=== PATIENT | male | born 1965 | race Caucasian/White ===

== ENCOUNTER 2016-06-17 17:00 | Inpatient (IN) | payer OTHER ==
[2016-06-17 17:35] VITALS: BMI 26.3
[2016-06-17] MEDS ORDERED: ACETAMINOPHEN 325 MG TABLET (FP) PO PRN (20:06)
[2016-06-17] MEDS ORDERED: guaiFENesin/D-METHORPHAN HB 10 ML UNIT-DOSE CUPS PO PRN (20:06)
[2016-06-17] MEDS ORDERED: diphenhydrAMINE HCL 50 MG CAPSULE PO PRN (20:06)
[2016-06-17] MEDS ORDERED: IBUPROFEN 400 MG TABLET (FP) PO PRN (20:06)
[2016-06-17] MEDS ORDERED: LOPERAMIDE HCL 2 MG CAPSULE PO PRN (20:06)
[2016-06-17] MEDS ORDERED: chlordiazePOXIDE HCL 25 MG CAPSULE PO PRN (20:06)
[2016-06-17] MEDS ORDERED: MAGNESIUM CITRATE 300 ML BOTTLE PO PRN (20:06)
[2016-06-17] MEDS ORDERED: MENTHOL/PHENOL 1 EACH UD MM PRN (20:06)
[2016-06-17] MEDS ORDERED: MAG HYDROX/AL HYDROX/SIMETH 30 ML UNIT-DOSE CUP PO PRN (20:06)
[2016-06-17] MEDS ORDERED: MAGNESIUM HYDROX 2400MG/30ML ORAL SUSPENSION 30 ML CUP PO PRN (20:06)
[2016-06-17] MEDS ORDERED: P-EPHED 60MG/TRIPROLIDI 2.5MG TABLET PO PRN (20:06)
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
[2016-06-17] MEDS ORDERED: DOCUSATE SODIUM 100 MG CAPSULE (FP) PO PRN (20:10)
[2016-06-17] MEDS ORDERED: ONDANSETRON *ODT* 4 MG TABLET SL PRN (20:11)
[2016-06-17] MEDS ORDERED: ALBUTEROL SO4 6.7 GM HFA INHALER IH PRN (20:12)
[2016-06-17] MEDS ORDERED: ALBUTEROL SO4 2.5/IPRATROPIUM 0.5 INH SOL 3 ML VIAL.NEB. NEB PRN (20:12)
[2016-06-17] MEDS: RANITIDINE HCL 150 MG TABLET (FP) PO SCH (21:39)
[2016-06-17] MEDS: THIAMINE HCL 100 MG TABLET (FP) PO SCH (21:39)
[2016-06-17] MEDS: chlordiazePOXIDE HCL 25 MG CAPSULE PO SCH (23:05)
[2016-06-17 23:44] LABS: URINE APPEARANCE CLEAR; URINE BILIRUBIN NEGATIVE (NEGATIVE); URINE BLOOD NEGATIVE (NEGATIVE); URINE COLOR YELLOW; URINE GLUCOSE (UA) NEGATIVE (NEGATIVE); URINE KETONE NEGATIVE (NEGATIVE); URINE LEUK ESTERASE NEGATIVE (NEGATIVE); URINE NITRITE NEGATIVE (NEGATIVE); URINE PROTEIN NEGATIVE (NEGATIVE); URINE UROBILINOGEN NEGATIVE E.U./dl (0.2-1.0)
[2016-06-18] MEDS: chlordiazePOXIDE HCL 25 MG CAPSULE PO SCH ×4 (05:56→22:25)
[2016-06-18] MEDS ORDERED: amLODIPine BESYLATE 5 MG TABLET (FP) PO SCH (10:00)
[2016-06-18 10:08] LABS: MCH 33.7 pg (25.7-33.7); MEAN CELL VOLUME 99.1 fl (80-96); MEAN PLT VOLUME 8.2 fl (7.5-11.1); PLATELET COUNT 202 K/MM3 (134-434); RDW 13.7 % (11.9-15.9)
[2016-06-18] MEDS: RANITIDINE HCL 150 MG TABLET (FP) PO SCH ×2 (10:17→22:25)
[2016-06-18] MEDS: PRENATAL VITAMINS W/ FOLIC ACID TABLET (FP) PO SCH (10:17)
[2016-06-18] MEDS: FLUoxetine HCL 20 MG CAPSULE (FP) PO SCH (10:18)
[2016-06-18 10:48] LABS: ALBUMIN 3.5 g/dl (3.4-5.0); ALK PHOS 55 U/L (45-117); ANION GAP 10 (8-16); BILIRUBIN,TOTAL 0.4 mg/dL (0.2-1.0); CALCIUM 8.2 mg/dL (8.5-10.1); CO2 25 mmol/L (21-32); CREATININE 0.9 mg/dL (0.7-1.3); GLUCOSE,RANDOM 107 mg/dL (74-106); SGOT/AST 16 U/L (15-37); SGPT/ALT 25 U/L (12-78); TOT PROT 6.5 g/dl (6.4-8.2)
--- NOTE | 2016-06-18 11:28 | PN ---
[facility] CIWA - CIWA Score Nausea/Vomitin-No Nausea/No Vomiting Muscle Tremors: 4-Moderate,w/Arms Extend Anxiety: 4-Mod. Anxious/Guarded Agitation: 4-Moderately Restless Paroxysmal Sweats: 1-Minimal Palms Moist Orientation: 0-Oriented Tacttile Disturbances: 3-Moderate Itch/Numb/Burn Auditory Disturbances: 0-None Visual Disturbances: 0-None Headache: 0-None Present CIWA-Ar Total Score: 16 BHS Progress Note (SOAP) Subjective: ANXIETY,TREMORS,SWEATS/CHILLS. Objective: 06/18/16 11:28 Vital Signs Temperature 97.0 F L 06/18/16 10:25 Pulse Rate 56 L 06/18/16 10:25 Respiratory Rate 19 06/18/16 10:25 Blood Pressure 144/94 06/18/16 10:25 O2 Sat by Pulse Oximetry (%) Laboratory Last Values WBC 4.0 K/mm3 (4.0-10.0) 06/18/16 07:15 RBC 3.79 M/mm3 (4.00-5.60) L 06/18/16 07:15 Hgb 12.8 GM/dL (11.7-16.9) 06/18/16 07:15 Hct 37.6 % (35.4-49) 06/18/16 07:15 MCV 99.1 fl (80-96) H 06/18/16 07:15 MCHC 34.0 g/dl (32.0-35.9) 06/18/16 07:15 RDW 13.7 % (11.9-15.9) 06/18/16 07:15 Plt Count 202 K/MM3 (134-434) D 06/18/16 07:15 MPV 8.2 fl (7.5-11.1) 06/18/16 07:15 Sodium 139 mmol/L (136-145) 06/18/16 07:15 Potassium 4.0 mmol/L (3.5-5.1) 06/18/16 07:15 Chloride 104 mmol/L (98-107) 06/18/16 07:15 Carbon Dioxide 25 mmol/L (21-32) 06/18/16 07:15 Anion Gap 10 (8-16) 06/18/16 07:15 BUN 14 mg/dL (7-18) 06/18/16 07:15 Creatinine 0.9 mg/dL (0.7-1.3) 06/18/16 07:15 Creat Clearance w eGFR > 60 (>60) 06/18/16 07:15 Random Glucose 107 mg/dL (74-106) H 06/18/16 07:15 Calcium 8.2 mg/dL (8.5-10.1) L 06/18/16 07:15 Total Bilirubin 0.4 mg/dL (0.2-1.0) 06/18/16 07:15 AST 16 U/L (15-37) D 06/18/16 07:15 ALT 25 U/L (12-78) 06/18/16 07:15 Alkaline Phosphatase 55 U/L (45-117) 06/18/16 07:15 Total Protein 6.5 g/dl (6.4-8.2) 06/18/16 07:15 Albumin 3.5 g/dl (3.4-5.0) 06/18/16 07:15 Urine Color Yellow 06/17/16 22:28 Urine Appearance Clear 06/17/16 22:28 Urine pH 5.0 (5.0-8.0) 06/17/16 22:28 Ur Specific [place] 1.020 (1.001-1.035) 06/17/16 22:28 Urine Protein Negative (NEGATIVE) 06/17/16 22:28 Urine Glucose (UA) Negative (NEGATIVE) 06/17/16 22:28 Urine Ketones Negative (NEGATIVE) 06/17/16 22:28 Urine Blood Negative (NEGATIVE) 06/17/16 22:28 Urine Nitrite Negative (NEGATIVE) 06/17/16 22:28 Urine Bilirubin Negative (NEGATIVE) 06/17/16 22:28 Urine Urobilinogen Negative E.U./dl (0.2-1.0) 06/17/16 22:28 Ur Leukocyte Esterase Negative (NEGATIVE) 06/17/16 22:28 Assessment: 06/18/16 11:28 WITHDRAWAL SX Plan: CONTINUE DETOX
[2016-06-18] MEDS ORDERED: INFLUENZA VACCINE 45 MCG/0.5 ML (MDV 16-17) IM ONE (12:00)
--- NOTE | 2016-06-18 14:26 | EKG ---
Test Reason : Blood Pressure : / mmHG Vent. Rate : 052 BPM Atrial Rate : 052 BPM P-R Int : 164 ms QRS Dur : 082 ms QT Int : 484 ms P-R-T Axes : 067 047 050 degrees QTc Int : 450 ms SINUS BRADYCARDIA OTHERWISE NORMAL ECG NO PREVIOUS ECGS AVAILABLE Confirmed by ROJAS MOBLEY MD ([id number]) on 06/18/2016 2:26:42 PM Referred By: Confirmed By:ROJAS MOBLEY MD
--- NOTE | 2016-06-18 15:16 | CONSULT ---
[facility] Psychiatric Consult - Data Date of interview: 06/18/16 Admission source: [facility] Identifying data: This is 51 years old male with no psychiatric hospitalization history, intoxicated with : Alcohol, Cocaine and Nicotine Substance Abuse History: - Smoking Cessation. Smoking history: Current every day smoker. Have you smoked in the past 12 months: Yes. Aproximately how many cigarettes per day: 20. Cigars Per Day: 0. Hx Chewing Tobacco Use: No. Initiated information on smoking cessation: Yes. 'Breaking Loose' booklet given : 06/17/16. - Substance & Tx. History. Hx Alcohol Use: Yes. Hx Substance Use : No. Substance Use Type: Alcohol. Hx Substance Use Treatment: Yes. - Substances Abused. Alcohol. Route: Oral. Frequency: Daily. Amount used: vodka 2 pints, beer 2 of 6 packs. Age of first use: 21. Date of Last Use: Medical History: Asthma, HTN, GERD, PPD+ history, Anemia history, Right foot injury history Psychiatric History: Patient reports history of depression and anxiety, reports taking prior to admission: Prozac 20mg po qd. Seroquel 200mg po qhs Physical/Sexual Abuse/Trauma History: Denies Additional Comment: Prozac 20mg po qd. Seroquel 200mg po qhs Mental Status Exam - Mental Status Exam Alert and Oriented to: Person Cognitive Function: Fair Patient Appearance: Unkempt Mood: Sad Affect: Flat Patient Behavior: Sedated Speech Pattern: Delayed Voice Loudness: Mildly Soft/Quiet Thought Process: Goal Oriented Thought Disorder: Being Controlled Hallucinations: Denies Suicidal Ideation: Denies Homicidal Ideation: Denies Insight/Judgement: Fair Sleep: Difficulty falling asleep Appetite: Weight loss Muscle strength/Tone: Normal Gait/Station: Shuffling Additional Comments: Prozac 20mg po qd. Seroquel 200mg po qhs Psychiatric Findings - Problem List ([place] 1, 2,3) (1) Alcohol dependence with uncomplicated withdrawal Current Visit: Yes Status: Acute (2) Nicotine dependence Current Visit: Yes Status: Acute Qualifiers: Nicotine product type: cigarettes Substance use status: in withdrawal Qualified Code(s): F17.213 - Nicotine dependence, cigarettes, with withdrawal (3) Cannabis dependence Current Visit: No Status: Acute (4) Cocaine dependence, uncomplicated Current Visit: No Status: Acute (5) Substance induced mood disorder Current Visit: No Status: Acute - Initial Treatment Plan Initial Treatment Plan: Prozac 20mg po qd. Seroquel 200mg po qhs
[2016-06-18] MEDS: QUEtiapine FUMARATE 200 MG TABLET PO SCH (22:25)
[2016-06-18] MEDS: THIAMINE HCL 100 MG TABLET (FP) PO SCH (22:25)
[2016-06-19] MEDS: chlordiazePOXIDE HCL 25 MG CAPSULE PO SCH ×3 (06:05→17:38)
[2016-06-19] MEDS ORDERED: DOCUSATE SODIUM 100 MG CAPSULE (FP) PO ONE (09:22)
--- NOTE | 2016-06-19 09:43 | PN ---
[facility] CIWA - CIWA Score Nausea/Vomitin-No Nausea/No Vomiting Muscle Tremors: 4-Moderate,w/Arms Extend Anxiety: 4-Mod. Anxious/Guarded Agitation: 4-Moderately Restless Paroxysmal Sweats: 1-Minimal Palms Moist Orientation: 0-Oriented Tacttile Disturbances: 3-Moderate Itch/Numb/Burn Auditory Disturbances: 0-None Visual Disturbances: 0-None Headache: 0-None Present CIWA-Ar Total Score: 16 S Progress Note (SOAP) Subjective: ANXIETY,SLIGHT TREMORS,SWEATS,DIFFICULTY MOVING BOWELS--HARD STOOL AND BLOOD IN STOOL. ON COLACE. Objective: 06/19/16 10:13 Vital Signs Temperature 97.5 F L 06/19/16 09:54 Pulse Rate 69 06/19/16 09:54 Respiratory Rate 18 06/19/16 09:54 Blood Pressure 154/110 06/19/16 09:54 O2 Sat by Pulse Oximetry (%) Laboratory Last Values WBC 4.0 K/mm3 (4.0-10.0) 06/18/16 07:15 RBC 3.79 M/mm3 (4.00-5.60) L 06/18/16 07:15 Hgb 12.8 GM/dL (11.7-16.9) 06/18/16 07:15 Hct 37.6 % (35.4-49) 06/18/16 07:15 MCV 99.1 fl (80-96) H 06/18/16 07:15 MCHC 34.0 g/dl (32.0-35.9) 06/18/16 07:15 RDW 13.7 % (11.9-15.9) 06/18/16 07:15 Plt Count 202 K/MM3 (134-434) D 06/18/16 07:15 MPV 8.2 fl (7.5-11.1) 06/18/16 07:15 Sodium 139 mmol/L (136-145) 06/18/16 07:15 Potassium 4.0 mmol/L (3.5-5.1) 06/18/16 07:15 Chloride 104 mmol/L (98-107) 06/18/16 07:15 Carbon Dioxide 25 mmol/L (21-32) 06/18/16 07:15 Anion Gap 10 (8-16) 06/18/16 07:15 BUN 14 mg/dL (7-18) 06/18/16 07:15 Creatinine 0.9 mg/dL (0.7-1.3) 06/18/16 07:15 Creat Clearance w eGFR > 60 (>60) 06/18/16 07:15 Random Glucose 107 mg/dL (74-106) H 06/18/16 07:15 Calcium 8.2 mg/dL (8.5-10.1) L 06/18/16 07:15 Total Bilirubin 0.4 mg/dL (0.2-1.0) 06/18/16 07:15 AST 16 U/L (15-37) D 06/18/16 07:15 ALT 25 U/L (12-78) 06/18/16 07:15 Alkaline Phosphatase 55 U/L (45-117) 06/18/16 07:15 Total Protein 6.5 g/dl (6.4-8.2) 06/18/16 07:15 Albumin 3.5 g/dl (3.4-5.0) 06/18/16 07:15 Urine Color Yellow 06/17/16 22:28 Urine Appearance Clear 06/17/16 22:28 Urine pH 5.0 (5.0-8.0) 06/17/16 22:28 Ur Specific [place] 1.020 (1.001-1.035) 06/17/16 22:28 Urine Protein Negative (NEGATIVE) 06/17/16 22:28 Urine Glucose (UA) Negative (NEGATIVE) 06/17/16 22:28 Urine Ketones Negative (NEGATIVE) 06/17/16 22:28 Urine Blood Negative (NEGATIVE) 06/17/16 22:28 Urine Nitrite Negative (NEGATIVE) 06/17/16 22:28 Urine Bilirubin Negative (NEGATIVE) 06/17/16 22:28 Urine Urobilinogen Negative E.U./dl (0.2-1.0) 06/17/16 22:28 Ur Leukocyte Esterase Negative (NEGATIVE) 06/17/16 22:28 RPR Titer Nonreactive (NONREACTIVE) 06/18/16 07:15 Assessment: 06/19/16 10:14 WITHDRAWAL SX Plan: CONTINUE DETOX RESTART COLACE. INCREASE PO FLUIDS
[2016-06-19] MEDS: amLODIPine BESYLATE 5 MG TABLET (FP) PO SCH (10:03)
[2016-06-19] MEDS: PRENATAL VITAMINS W/ FOLIC ACID TABLET (FP) PO SCH (10:03)
[2016-06-19] MEDS: FLUoxetine HCL 20 MG CAPSULE (FP) PO SCH (10:03)
[2016-06-19] MEDS: RANITIDINE HCL 150 MG TABLET (FP) PO SCH ×2 (10:03→22:25)
--- NOTE | 2016-06-19 10:10 | PN ---
BHS Progress Note (SOAP) Subjective: ANXIETY,SLIGHT TREMORS,DIFFICULTY MOVING BOWELS--HARD STOOL AND BLOOD IN STOOL ON COLACE. Objective: 06/19/16 10:09 Vital Signs Temperature 97.5 F L 06/19/16 09:54 Pulse Rate 69 06/19/16 09:54 Respiratory Rate 18 06/19/16 09:54 Blood Pressure 154/110 06/19/16 09:54 O2 Sat by Pulse Oximetry (%) Laboratory Last Values WBC 4.0 K/mm3 (4.0-10.0) 06/18/16 07:15 RBC 3.79 M/mm3 (4.00-5.60) L 06/18/16 07:15 Hgb 12.8 GM/dL (11.7-16.9) 06/18/16 07:15 Hct 37.6 % (35.4-49) 06/18/16 07:15 MCV 99.1 fl (80-96) H 06/18/16 07:15 MCHC 34.0 g/dl (32.0-35.9) 06/18/16 07:15 RDW 13.7 % (11.9-15.9) 06/18/16 07:15 Plt Count 202 K/MM3 (134-434) D 06/18/16 07:15 MPV 8.2 fl (7.5-11.1) 06/18/16 07:15 Sodium 139 mmol/L (136-145) 06/18/16 07:15 Potassium 4.0 mmol/L (3.5-5.1) 06/18/16 07:15 Chloride 104 mmol/L (98-107) 06/18/16 07:15 Carbon Dioxide 25 mmol/L (21-32) 06/18/16 07:15 Anion Gap 10 (8-16) 06/18/16 07:15 BUN 14 mg/dL (7-18) 06/18/16 07:15 Creatinine 0.9 mg/dL (0.7-1.3) 06/18/16 07:15 Creat Clearance w eGFR > 60 (>60) 06/18/16 07:15 Random Glucose 107 mg/dL (74-106) H 06/18/16 07:15 Calcium 8.2 mg/dL (8.5-10.1) L 06/18/16 07:15 Total Bilirubin 0.4 mg/dL (0.2-1.0) 06/18/16 07:15 AST 16 U/L (15-37) D 06/18/16 07:15 ALT 25 U/L (12-78) 06/18/16 07:15 Alkaline Phosphatase 55 U/L (45-117) 06/18/16 07:15 Total Protein 6.5 g/dl (6.4-8.2) 06/18/16 07:15 Albumin 3.5 g/dl (3.4-5.0) 06/18/16 07:15 Urine Color Yellow 06/17/16 22:28 Urine Appearance Clear 06/17/16 22:28 Urine pH 5.0 (5.0-8.0) 06/17/16 22:28 Ur Specific [place] 1.020 (1.001-1.035) 06/17/16 22:28 Urine Protein Negative (NEGATIVE) 06/17/16 22:28 Urine Glucose (UA) Negative (NEGATIVE) 06/17/16 22:28 Urine Ketones Negative (NEGATIVE) 06/17/16 22:28 Urine Blood Negative (NEGATIVE) 06/17/16 22:28 Urine Nitrite Negative (NEGATIVE) 06/17/16 22:28 Urine Bilirubin Negative (NEGATIVE) 06/17/16 22:28 Urine Urobilinogen Negative E.U./dl (0.2-1.0) 06/17/16 22:28 Ur Leukocyte Esterase Negative (NEGATIVE) 06/17/16 22:28 RPR Titer Nonreactive (NONREACTIVE) 06/18/16 07:15 Assessment: 06/19/16 10:09 WITHDRAWAL SX Plan: CONTINUE DETOX
[2016-06-19] MEDS: DOCUSATE SODIUM 100 MG CAPSULE (FP) PO SCH ×2 (14:31→22:25)
[2016-06-19] MEDS: chlordiazePOXIDE 5 MG CAPSULE PO SCH (22:25)
[2016-06-19] MEDS: THIAMINE HCL 100 MG TABLET (FP) PO SCH (22:25)
[2016-06-19] MEDS: QUEtiapine FUMARATE 200 MG TABLET PO SCH (22:25)
[2016-06-20] MEDS: DOCUSATE SODIUM 100 MG CAPSULE (FP) PO SCH ×3 (05:44→22:14)
[2016-06-20] MEDS: chlordiazePOXIDE 5 MG CAPSULE PO SCH ×3 (05:44→17:16)
[2016-06-20] MEDS: PRENATAL VITAMINS W/ FOLIC ACID TABLET (FP) PO SCH (10:13)
[2016-06-20] MEDS: RANITIDINE HCL 150 MG TABLET (FP) PO SCH ×2 (10:13→22:14)
[2016-06-20] MEDS: amLODIPine BESYLATE 5 MG TABLET (FP) PO SCH (10:13)
[2016-06-20] MEDS: FLUoxetine HCL 20 MG CAPSULE (FP) PO SCH (10:13)
--- NOTE | 2016-06-20 12:32 | PN ---
BHS Progress Note (SOAP) Subjective: ANXIETY,TREMORS,SWEATING,INTERRUPTED SLEEP,RESTLESS Objective: 06/20/16 12:31 Vital Signs - 8 hr 06/20/16 06/20/16 06:23 10:52 Temperature 96.9 F L 96.2 F L Pulse Rate 66 69 Respiratory 18 18 Rate Blood Pressure 132/101 134/95 Laboratory Last Values WBC 4.0 K/mm3 (4.0-10.0) 06/18/16 07:15 RBC 3.79 M/mm3 (4.00-5.60) L 06/18/16 07:15 Hgb 12.8 GM/dL (11.7-16.9) 06/18/16 07:15 Hct 37.6 % (35.4-49) 06/18/16 07:15 MCV 99.1 fl (80-96) H 06/18/16 07:15 MCHC 34.0 g/dl (32.0-35.9) 06/18/16 07:15 RDW 13.7 % (11.9-15.9) 06/18/16 07:15 Plt Count 202 K/MM3 (134-434) D 06/18/16 07:15 MPV 8.2 fl (7.5-11.1) 06/18/16 07:15 Sodium 139 mmol/L (136-145) 06/18/16 07:15 Potassium 4.0 mmol/L (3.5-5.1) 06/18/16 07:15 Chloride 104 mmol/L (98-107) 06/18/16 07:15 Carbon Dioxide 25 mmol/L (21-32) 06/18/16 07:15 Anion Gap 10 (8-16) 06/18/16 07:15 BUN 14 mg/dL (7-18) 06/18/16 07:15 Creatinine 0.9 mg/dL (0.7-1.3) 06/18/16 07:15 Creat Clearance w eGFR > 60 (>60) 06/18/16 07:15 Random Glucose 107 mg/dL (74-106) H 06/18/16 07:15 Calcium 8.2 mg/dL (8.5-10.1) L 06/18/16 07:15 Total Bilirubin 0.4 mg/dL (0.2-1.0) 06/18/16 07:15 AST 16 U/L (15-37) D 06/18/16 07:15 ALT 25 U/L (12-78) 06/18/16 07:15 Alkaline Phosphatase 55 U/L (45-117) 06/18/16 07:15 Total Protein 6.5 g/dl (6.4-8.2) 06/18/16 07:15 Albumin 3.5 g/dl (3.4-5.0) 06/18/16 07:15 Urine Color Yellow 06/17/16 22:28 Urine Appearance Clear 06/17/16 22:28 Urine pH 5.0 (5.0-8.0) 06/17/16 22:28 Ur Specific [place] 1.020 (1.001-1.035) 06/17/16 22:28 Urine Protein Negative (NEGATIVE) 06/17/16 22:28 Urine Glucose (UA) Negative (NEGATIVE) 06/17/16 22:28 Urine Ketones Negative (NEGATIVE) 06/17/16 22:28 Urine Blood Negative (NEGATIVE) 06/17/16 22:28 Urine Nitrite Negative (NEGATIVE) 06/17/16 22:28 Urine Bilirubin Negative (NEGATIVE) 06/17/16 22:28 Urine Urobilinogen Negative E.U./dl (0.2-1.0) 06/17/16 22:28 Ur Leukocyte Esterase Negative (NEGATIVE) 06/17/16 22:28 RPR Titer Nonreactive (NONREACTIVE) 06/18/16 07:15 LABS NOTED Assessment: 06/20/16 12:31 WITHDRAWAL SX. Plan: CONTINUE DETOX
[2016-06-20] MEDS: THIAMINE HCL 100 MG TABLET (FP) PO SCH (22:14)
[2016-06-20] MEDS: chlordiazePOXIDE HCL 10 MG CAPSULE PO SCH (22:14)
[2016-06-20] MEDS: QUEtiapine FUMARATE 200 MG TABLET PO SCH (22:15)
[2016-06-21] MEDS: chlordiazePOXIDE HCL 10 MG CAPSULE PO SCH (05:48)
[2016-06-21] MEDS: DOCUSATE SODIUM 100 MG CAPSULE (FP) PO SCH (05:48)
[2016-06-21 09:29] VITALS: BP 140/95; PULSE 58; TEMP 97.1
[2016-06-21] MEDS: PRENATAL VITAMINS W/ FOLIC ACID TABLET (FP) PO SCH (09:56)
[2016-06-21] MEDS: RANITIDINE HCL 150 MG TABLET (FP) PO SCH (09:57)
[2016-06-21] MEDS: FLUoxetine HCL 20 MG CAPSULE (FP) PO SCH (09:57)
[2016-06-21] MEDS: amLODIPine BESYLATE 5 MG TABLET (FP) PO SCH (09:58)
--- NOTE | 2016-06-21 11:59 | DS ---
[facility] Detox Discharge Summary Admission Date: 06/17/16 Discharge Date: 06/21/16 - History Present History: Alcohol Dependence Pertinent Past History: Asthma, Anemia, COPD, HTN - Physical Exam Results Vital Signs: Vital Signs Temperature 97.1 F L 06/21/16 09:28 Pulse Rate 58 L 06/21/16 09:28 Respiratory Rate 18 06/21/16 09:28 Blood Pressure 140/95 06/21/16 09:28 O2 Sat by Pulse Oximetry (%) Pertinent Admission Physical Exam Findings: Withdrawal symptoms Laboratory Tests 06/17/16 06/18/16 06/18/16 22:28 07:15 07:15 WBC 4.0 RBC 3.79 L Hgb 12.8 Hct 37.6 MCV 99.1 H MCHC 34.0 RDW 13.7 Plt Count 202 D MPV 8.2 Sodium 139 Potassium 4.0 Chloride 104 Carbon Dioxide 25 Anion Gap 10 BUN 14 Creatinine 0.9 Creat Clearance w eGFR > 60 Random Glucose 107 H Calcium 8.2 L Total Bilirubin 0.4 AST 16 D ALT 25 Alkaline Phosphatase 55 Total Protein 6.5 Albumin 3.5 Urine Color Yellow Urine Appearance Clear Urine pH 5.0 Ur Specific [place] 1.020 Urine Protein Negative Urine Glucose (UA) Negative Urine Ketones Negative Urine Blood Negative Urine Nitrite Negative Urine Bilirubin Negative Urine Urobilinogen Negative Ur Leukocyte Esterase Negative RPR Titer 06/18/16 07:15 WBC RBC Hgb Hct MCV MCHC RDW Plt Count MPV Sodium Potassium Chloride Carbon Dioxide Anion Gap BUN Creatinine Creat Clearance w eGFR Random Glucose Calcium Total Bilirubin AST ALT Alkaline Phosphatase Total Protein Albumin Urine Color Urine Appearance Urine pH Ur Specific [place] Urine Protein Urine Glucose (UA) Urine Ketones Urine Blood Urine Nitrite Urine Bilirubin Urine Urobilinogen Ur Leukocyte Esterase RPR Titer Nonreactive Labs noted - Treatment Hospital Course: Detox Protocol Followed, Detoxed Safely, Responded well, Discharged Condition Good - Medication Discharge Medications: Ambulatory Orders Amlodipine Besylate [Norvasc -] 5 mg PO DAILY #30 tablet 12/22/14 Docusate Sodium [Colace -] 100 mg PO HS 08/31/15 Fluoxetine HCl [Prozac] 20 mg PO DAILY #30 capsule 09/02/15 Quetiapine Fumarate [Seroquel] 200 mg PO HS #30 tablet 09/02/15 Fluoxetine HCl [Prozac -] 20 mg PO DAILY #30 capsule 06/18/16 Quetiapine Fumarate [Seroquel -] 200 mg PO HS #30 tab 06/18/16 - Diagnosis (1) Alcohol dependence with uncomplicated withdrawal Status: Acute (2) Asthma Status: Chronic Qualifiers: Asthma severity: mild intermittent Asthma complication type: uncomplicated Qualified Code(s): J45.20 - Mild intermittent asthma, uncomplicated (3) Essential hypertension Status: Chronic (4) Nicotine dependence Status: Chronic Qualifiers: Nicotine product type: cigarettes Substance use status: uncomplicated Qualified Code(s): F17.210 - Nicotine dependence, cigarettes, uncomplicated (5) Substance induced mood disorder Status: Acute (6) Anemia Status: Chronic Qualifiers: Anemia type: iron deficiency Iron deficiency anemia type: inadequate dietary iron intake Qualified Code(s): D50.8 - Other iron deficiency anemias (7) COPD (chronic obstructive pulmonary disease) Status: Chronic - AMA Did Patient Leave Against Medical Advice: No
== END 2016-06-21 10:10 | disposition home or self-care (01) | DRG 775 ==
LOC: YASAS 17:00 → Y3N 19:23
PROVIDERS: ADMIT Internal Medicine; ATTEND Internal Medicine
PROC: HZ2ZZZZ Detoxification Services for Substance Abuse Treatment (ICD-10-PCS; principal; 2016-06-17)
DX: F10.230 Alcohol dependence with withdrawal, uncomplicated (principal); F17.210 Nicotine dependence, cigarettes, uncomplicated; F19.24 Other psychoactive substance dependence with psychoactive substance-induced mood disorder; J45.20 Mild intermittent asthma, uncomplicated; J44.9 Chronic obstructive pulmonary disease, unspecified; I10 Essential (primary) hypertension; D50.8 Other iron deficiency anemias; K21.9 Gastro-esophageal reflux disease without esophagitis
CPT/HCPCS: 36415; 80053; 81003; 85027; 86593; 93005; 93010

== ENCOUNTER 2017-04-14 17:36 | Inpatient (IN) | payer OTHER ==
[2017-04-14 19:51] VITALS: BMI 25.7
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
[2017-04-14] MEDS ORDERED: guaiFENesin/D-METHORPHAN HB 10 ML UNIT-DOSE CUPS PO PRN (20:33)
[2017-04-14] MEDS ORDERED: ACETAMINOPHEN 325 MG TABLET (FP) PO PRN (20:33)
[2017-04-14] MEDS ORDERED: MENTHOL/PHENOL 1 EACH UD MM PRN (20:33)
[2017-04-14] MEDS ORDERED: LOPERAMIDE HCL 2 MG CAPSULE PO PRN (20:33)
[2017-04-14] MEDS ORDERED: MAGNESIUM CITRATE 300 ML BOTTLE PO PRN (20:33)
[2017-04-14] MEDS ORDERED: MAG HYDROX/AL HYDROX/SIMETH 30 ML UNIT-DOSE CUP PO PRN (20:33)
[2017-04-14] MEDS ORDERED: MAGNESIUM HYDROX 2400MG/30ML ORAL SUSPENSION 30 ML CUP PO PRN (20:33)
[2017-04-14] MEDS ORDERED: P-EPHED 60MG/TRIPROLIDI 2.5MG TABLET PO PRN (20:33)
[2017-04-14] MEDS ORDERED: chlordiazePOXIDE HCL 25 MG CAPSULE PO PRN (20:33)
[2017-04-14] MEDS: amLODIPine BESYLATE 5 MG TABLET (FP) PO SCH (22:49)
[2017-04-14] MEDS: chlordiazePOXIDE HCL 25 MG CAPSULE PO SCH (22:49)
[2017-04-14] MEDS: THIAMINE HCL 100 MG TABLET (FP) PO SCH (22:49)
[2017-04-15 02:25] LABS: URINE APPEARANCE CLEAR; URINE BILIRUBIN NEGATIVE (NEGATIVE); URINE BLOOD 1+ (NEGATIVE); URINE COLOR LT. YELLOW; URINE GLUCOSE (UA) NEGATIVE (NEGATIVE); URINE KETONE TRACE (NEGATIVE); URINE NITRITE NEGATIVE (NEGATIVE); URINE PROTEIN NEGATIVE (NEGATIVE); URINE UROBILINOGEN 0.2 mg/dL (0.2-1.0)
[2017-04-15 02:52] LABS: URINE RBC 10 /hpf (0-3); URINE WBC 3 /hpf (3-5)
[2017-04-15 02:53] LABS: URINE MUCUS MANY
[2017-04-15] MEDS: chlordiazePOXIDE HCL 25 MG CAPSULE PO SCH ×4 (05:36→22:39)
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
[2017-04-15 10:08] LABS: MCHC 33.7 g/dl (32.0-35.9); MEAN PLT VOLUME 7.8 fl (7.5-11.1); PLATELET COUNT 202 K/MM3 (134-434); RDW 13.8 % (11.9-15.9); WHITE BLOOD COUNT 4.3 K/mm3 (4.0-10.0)
[2017-04-15 10:39] LABS: HIV 1 & 2 AB NEGATIVE; HIV 1 AGp24 NEGATIVE
[2017-04-15 10:40] LABS: ALBUMIN 3.9 g/dl (3.4-5.0); ALK PHOS 86 U/L (45-117); ANION GAP 7 (8-16); BILIRUBIN,TOTAL 0.9 mg/dL (0.2-1.0); CALCIUM 8.5 mg/dL (8.5-10.1); CO2 27 mmol/L (21-32); CREATININE 0.9 mg/dL (0.7-1.3); GLUCOSE,RANDOM 115 mg/dL (74-106); SGOT/AST 24 U/L (15-37); SGPT/ALT 29 U/L (12-78); TOT PROT 7.3 g/dl (6.4-8.2)
[2017-04-15] MEDS: NICOTINE 21 MG/24 HOURS TOPICAL PATCH TD SCH (10:52)
[2017-04-15] MEDS: amLODIPine BESYLATE 5 MG TABLET (FP) PO SCH (10:53)
[2017-04-15] MEDS: PRENATAL VITAMINS W/ FOLIC ACID TABLET (FP) PO SCH (10:53)
[2017-04-15 11:39] LABS: URINE LEUK ESTERASE Negative (NEGATIVE)
--- NOTE | 2017-04-15 12:26 | PN ---
[facility] CIWA - CIWA Score Nausea/Vomitin-No Nausea/No Vomiting Muscle Tremors: 4-Moderate,w/Arms Extend Anxiety: 4-Mod. Anxious/Guarded Agitation: 4-Moderately Restless Paroxysmal Sweats: 3 Orientation: 0-Oriented Tacttile Disturbances: 0-None Auditory Disturbances: 0-None Visual Disturbances: 0-None Headache: 0-None Present CIWA-Ar Total Score: 15 BHS Progress Note (SOAP) Subjective: irritable agitation anxiety sweats restless interrupted sleep Objective: 04/15/17 12:26 Vital Signs Temperature 96.9 F L 04/15/17 09:52 Pulse Rate 76 04/15/17 09:52 Respiratory Rate 18 04/15/17 09:52 Blood Pressure 146/90 04/15/17 09:52 O2 Sat by Pulse Oximetry (%) Laboratory Tests 04/14/17 04/15/17 04/15/17 22:50 07:40 07:40 WBC 4.3 RBC 3.96 L Hgb 13.1 Hct 38.8 MCV 98.0 H MCH 33.0 MCHC 33.7 RDW 13.8 Plt Count 202 MPV 7.8 Sodium Potassium Chloride Carbon Dioxide Anion Gap BUN Creatinine Creat Clearance w eGFR Random Glucose Calcium Total Bilirubin AST ALT Alkaline Phosphatase Total Protein Albumin Urine Color Lt. yellow Urine Appearance Clear Urine pH 6.0 Ur Specific Media 1.025 Urine Protein Negative Urine Glucose (UA) Negative Urine Ketones Trace H Urine Blood 1+ H Urine Nitrite Negative Urine Bilirubin Negative Urine Urobilinogen 0.2 Ur Leukocyte Esterase Negative Ur Epithelial Cells Rare Urine Mucus Many RPR Titer HIV 1&2 Antibody Screen Negative HIV P24 Antigen Negative 04/15/17 04/15/17 07:40 07:40 WBC RBC Hgb Hct MCV MCH MCHC RDW Plt Count MPV Sodium 138 Potassium 3.5 Chloride 104 Carbon Dioxide 27 Anion Gap 7 L BUN 12 Creatinine 0.9 Creat Clearance w eGFR > 60 Random Glucose 115 H Calcium 8.5 Total Bilirubin 0.9 D AST 24 D ALT 29 Alkaline Phosphatase 86 D Total Protein 7.3 Albumin 3.9 Urine Color Urine Appearance Urine pH Ur Specific Media Urine Protein Urine Glucose (UA) Urine Ketones Urine Blood Urine Nitrite Urine Bilirubin Urine Urobilinogen Ur Leukocyte Esterase Ur Epithelial Cells Urine Mucus RPR Titer Nonreactive HIV 1&2 Antibody Screen HIV P24 Antigen aaox3 ambulating no acute distress Assessment: 04/15/17 12:26 withdrawal sx Plan: continue detox increase fluids
--- NOTE | 2017-04-15 22:35 | EKG ---
Test Reason : Blood Pressure : / mmHG Vent. Rate : 071 BPM Atrial Rate : 071 BPM P-R Int : 144 ms QRS Dur : 082 ms QT Int : 426 ms P-R-T Axes : 060 032 052 degrees QTc Int : 462 ms NORMAL SINUS RHYTHM NORMAL ECG WHEN COMPARED WITH ECG OF 17-JUN-2016 21:20, NO SIGNIFICANT CHANGE WAS FOUND Confirmed by LAMIN VELIZ MD ([id number]) on 04/15/2017 10:35:31 PM Referred By: Confirmed By:LAMIN VELIZ MD
[2017-04-15] MEDS: THIAMINE HCL 100 MG TABLET (FP) PO SCH (22:38)
[2017-04-15] MEDS: QUEtiapine FUMARATE 300 MG TABLET PO SCH (22:39)
[2017-04-16] MEDS: chlordiazePOXIDE HCL 25 MG CAPSULE PO SCH ×3 (05:49→17:24)
[2017-04-16] MEDS: PRENATAL VITAMINS W/ FOLIC ACID TABLET (FP) PO SCH (10:14)
[2017-04-16] MEDS: amLODIPine BESYLATE 5 MG TABLET (FP) PO SCH (10:14)
[2017-04-16] MEDS: NICOTINE 21 MG/24 HOURS TOPICAL PATCH TD SCH (10:14)
--- NOTE | 2017-04-16 10:44 | PN ---
S CIWA - CIWA Score Nausea/Vomitin Muscle Tremors: 3 Anxiety: 2 Agitation: 2 Paroxysmal Sweats: 1-Minimal Palms Moist Orientation: 0-Oriented Tacttile Disturbances: 1-Very Mild Itch/Numbness Auditory Disturbances: 1-Very Mild Visual Disturbances: 0-None Headache: 2-Mild CIWA-Ar Total Score: 15 BHS Progress Note (SOAP) Subjective: alert,irritable,anxious,interrupted sleep,tremor Objective: 04/16/17 10:42 Vital Signs Temperature 98.1 F 04/16/17 10:00 Pulse Rate 93 H 04/16/17 10:00 Respiratory Rate 18 04/16/17 10:00 Blood Pressure 125/88 04/16/17 10:00 O2 Sat by Pulse Oximetry (%) ekg nsr,normal ecg Laboratory Last Values WBC 4.3 K/mm3 (4.0-10.0) 04/15/17 07:40 RBC 3.96 M/mm3 (4.00-5.60) L 04/15/17 07:40 Hgb 13.1 GM/dL (11.7-16.9) 04/15/17 07:40 Hct 38.8 % (35.4-49) 04/15/17 07:40 MCV 98.0 fl (80-96) H 04/15/17 07:40 MCH 33.0 pg (25.7-33.7) 04/15/17 07:40 MCHC 33.7 g/dl (32.0-35.9) 04/15/17 07:40 RDW 13.8 % (11.9-15.9) 04/15/17 07:40 Plt Count 202 K/MM3 (134-434) 04/15/17 07:40 MPV 7.8 fl (7.5-11.1) 04/15/17 07:40 Sodium 138 mmol/L (136-145) 04/15/17 07:40 Potassium 3.5 mmol/L (3.5-5.1) 04/15/17 07:40 Chloride 104 mmol/L (98-107) 04/15/17 07:40 Carbon Dioxide 27 mmol/L (21-32) 04/15/17 07:40 Anion Gap 7 (8-16) L 04/15/17 07:40 BUN 12 mg/dL (7-18) 04/15/17 07:40 Creatinine 0.9 mg/dL (0.7-1.3) 04/15/17 07:40 Creat Clearance w eGFR > 60 (>60) 04/15/17 07:40 Random Glucose 115 mg/dL (74-106) H 04/15/17 07:40 Calcium 8.5 mg/dL (8.5-10.1) 04/15/17 07:40 Total Bilirubin 0.9 mg/dL (0.2-1.0) D 04/15/17 07:40 AST 24 U/L (15-37) D 04/15/17 07:40 ALT 29 U/L (12-78) 04/15/17 07:40 Alkaline Phosphatase 86 U/L (45-117) D 04/15/17 07:40 Total Protein 7.3 g/dl (6.4-8.2) 04/15/17 07:40 Albumin 3.9 g/dl (3.4-5.0) 04/15/17 07:40 Urine Color Lt. yellow 04/14/17 22:50 Urine Appearance Clear 04/14/17 22:50 Urine pH 6.0 (5.0-8.0) 04/14/17 22:50 Ur Specific Alicia 1.025 (1.001-1.035) 04/14/17 22:50 Urine Protein Negative (NEGATIVE) 04/14/17 22:50 Urine Glucose (UA) Negative (NEGATIVE) 04/14/17 22:50 Urine Ketones Trace (NEGATIVE) H 04/14/17 22:50 Urine Blood 1+ (NEGATIVE) H 04/14/17 22:50 Urine Nitrite Negative (NEGATIVE) 04/14/17 22:50 Urine Bilirubin Negative (NEGATIVE) 04/14/17 22:50 Urine Urobilinogen 0.2 mg/dL (0.2-1.0) 04/14/17 22:50 Ur Leukocyte Esterase Negative (NEGATIVE) 04/14/17 22:50 Ur Epithelial Cells Rare /HPF (FEW) 04/14/17 22:50 Urine Mucus Many 04/14/17 22:50 RPR Titer Nonreactive (NONREACTIVE) 04/15/17 07:40 HIV 1&2 Antibody Screen Negative 04/15/17 07:40 HIV P24 Antigen Negative 04/15/17 07:40 Assessment: 04/16/17 10:44 withdrawal symptom Plan: continue detox
[2017-04-16] MEDS: IBUPROFEN 400 MG TABLET (FP) PO PRN ×2 (13:50→20:34)
[2017-04-16] MEDS: hydrOXYzine PAMOATE 50 MG CAPSULE (FP) PO PRN (20:33)
[2017-04-16] MEDS: THIAMINE HCL 100 MG TABLET (FP) PO SCH (22:30)
[2017-04-16] MEDS: QUEtiapine FUMARATE 300 MG TABLET PO SCH (22:30)
[2017-04-16] MEDS: chlordiazePOXIDE 5 MG CAPSULE PO SCH (22:30)
[2017-04-17] MEDS: chlordiazePOXIDE 5 MG CAPSULE PO SCH ×3 (05:51→17:55)
[2017-04-17] MEDS: IBUPROFEN 400 MG TABLET (FP) PO PRN ×2 (08:05→18:54)
[2017-04-17] MEDS: NICOTINE 21 MG/24 HOURS TOPICAL PATCH TD SCH (10:46)
[2017-04-17] MEDS: PRENATAL VITAMINS W/ FOLIC ACID TABLET (FP) PO SCH (10:46)
[2017-04-17] MEDS: AMOXICILLIN 500 MG CAPSULE (FP) PO SCH ×3 (10:48→22:34)
[2017-04-17] MEDS: amLODIPine BESYLATE 5 MG TABLET (FP) PO SCH (10:48)
[2017-04-17] MEDS: hydrOXYzine PAMOATE 50 MG CAPSULE (FP) PO PRN (10:48)
--- NOTE | 2017-04-17 12:15 | PN ---
BHS Progress Note (SOAP) Subjective: alert,irritable,anxious,interrupted sleep,tremor Objective: 04/17/17 12:14 Vital Signs Temperature 97.9 F 04/17/17 11:23 Pulse Rate 85 04/17/17 11:23 Respiratory Rate 16 04/17/17 11:23 Blood Pressure 118/89 04/17/17 11:23 O2 Sat by Pulse Oximetry (%) Assessment: 04/17/17 12:14 withdrawal symptom Plan: continue detox
[2017-04-17] MEDS: chlordiazePOXIDE HCL 10 MG CAPSULE PO SCH (22:34)
[2017-04-17] MEDS: THIAMINE HCL 100 MG TABLET (FP) PO SCH (22:34)
[2017-04-17] MEDS: QUEtiapine FUMARATE 300 MG TABLET PO SCH (22:34)
[2017-04-18] MEDS: chlordiazePOXIDE HCL 10 MG CAPSULE PO SCH ×2 (05:16→10:45)
[2017-04-18] MEDS: AMOXICILLIN 500 MG CAPSULE (FP) PO SCH (05:16)
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
[2017-04-18 09:41] VITALS: BP 132/94; PULSE 72; TEMP 98
[2017-04-18] MEDS: PRENATAL VITAMINS W/ FOLIC ACID TABLET (FP) PO SCH (10:45)
[2017-04-18] MEDS: hydrOXYzine PAMOATE 50 MG CAPSULE (FP) PO PRN (10:45)
[2017-04-18] MEDS: amLODIPine BESYLATE 5 MG TABLET (FP) PO SCH (10:45)
== END 2017-04-18 12:21 | disposition other institution (70) | DRG 774 ==
LOC: YASAS 17:36 → Y6N 20:22
PROVIDERS: ADMIT Internal Medicine; ATTEND Internal Medicine
PROC: HZ2ZZZZ Detoxification Services for Substance Abuse Treatment (ICD-10-PCS; principal; 2017-04-14)
DX: F10.230 Alcohol dependence with withdrawal, uncomplicated (principal); F14.20 Cocaine dependence, uncomplicated; F12.20 Cannabis dependence, uncomplicated; F17.210 Nicotine dependence, cigarettes, uncomplicated; F19.24 Other psychoactive substance dependence with psychoactive substance-induced mood disorder; F19.282 Other psychoactive substance dependence with psychoactive substance-induced sleep disorder; F39 Unspecified mood [affective] disorder; I10 Essential (primary) hypertension; K21.9 Gastro-esophageal reflux disease without esophagitis; K43.9 Ventral hernia without obstruction or gangrene; J45.909 Unspecified asthma, uncomplicated; J44.9 Chronic obstructive pulmonary disease, unspecified; D64.9 Anemia, unspecified; Z87.828 Personal history of other (healed) physical injury and trauma; Z98.890 Other specified postprocedural states
CPT/HCPCS: 36415; 71020-TC; 80053; 81003; 81015; 85027; 86593; 87389; 93005; 93010

== ENCOUNTER 2017-04-18 12:52 | Inpatient (IN) | payer OTHER ==
--- NOTE | 2017-04-18 14:27 | HP ---
[facility] Rehab Assess/Revision - Admission History Admitted to Rehab from: [facility] [place] Date of Admission to Rehab: 04/19/17 - Vital signs Vital Signs: Vital Signs Period Temp Pulse Resp BP Sys/Cabrales Pulse Ox Last 24 Hr 98.0 F 77 18 123/85 - Findings Detox History & Physical reviewed: Yes Concur with findings: Yes Comments/Additional Findings: for rehab as protocol Inpatient Rehab Admission - Initial Determination Are CD services needed?: Yes Free of communicable disease: Yes Not in need of hospitalization: Yes - Rehab Admission Criteria Previous failed treatment: Yes Poor recovery environment: Yes Comorbidities: Yes Patient is meeting Inpatient Rehab admission criteria:: Yes
[2017-04-18] MEDS ORDERED: ACETAMINOPHEN 325 MG TABLET (FP) PO PRN (14:28)
[2017-04-18] MEDS ORDERED: LOPERAMIDE HCL 2 MG CAPSULE PO PRN (14:28)
[2017-04-18] MEDS ORDERED: P-EPHED 60MG/TRIPROLIDI 2.5MG TABLET PO PRN (14:28)
[2017-04-18] MEDS ORDERED: guaiFENesin/D-METHORPHAN HB 10 ML UNIT-DOSE CUPS PO PRN (14:28)
[2017-04-18] MEDS ORDERED: MAGNESIUM HYDROX 2400MG/30ML ORAL SUSPENSION 30 ML CUP PO PRN (14:28)
[2017-04-18] MEDS ORDERED: MAG HYDROX/AL HYDROX/SIMETH 30 ML UNIT-DOSE CUP PO PRN (14:28)
[2017-04-18] MEDS ORDERED: MENTHOL/PHENOL 1 EACH UD MM PRN (14:28)
[2017-04-18] MEDS ORDERED: MAGNESIUM CITRATE 300 ML BOTTLE PO PRN (14:28)
[2017-04-18] MEDS: IBUPROFEN 400 MG TABLET (FP) PO PRN (15:12)
[2017-04-18] MEDS: hydrOXYzine PAMOATE 50 MG CAPSULE (FP) PO PRN (17:53)
[2017-04-18] MEDS: QUEtiapine FUMARATE 300 MG TABLET PO SCH (21:28)
[2017-04-18] MEDS: THIAMINE HCL 100 MG TABLET (FP) PO SCH (21:28)
[2017-04-19] MEDS: NICOTINE 21 MG/24 HOURS TOPICAL PATCH TD SCH (10:06)
[2017-04-19] MEDS: amLODIPine BESYLATE 5 MG TABLET (FP) PO SCH (10:07)
[2017-04-19] MEDS: PRENATAL VITAMINS W/ FOLIC ACID TABLET (FP) PO SCH (10:07)
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
[2017-04-19] MEDS: busPIRone HCL 5 MG TABLET PO SCH ×3 (11:55→21:33)
[2017-04-19] MEDS ORDERED: PNEUMOC 13-VAL CONJ-DIP CRM/PF 0.5 ML DISP.SYRIN IM ONE (14:14)
[2017-04-19] MEDS ORDERED: FLU VACCINE QUAD 60 MCG/0.5 ML (MDV 17-18) IM ONE (14:14)
[2017-04-19] MEDS ORDERED: PNEUMOCOCCAL 23 VACCINE 0.5 ML VIAL IM ONE (15:00)
[2017-04-19] MEDS: QUEtiapine FUMARATE 300 MG TABLET PO SCH (21:33)
[2017-04-19] MEDS: THIAMINE HCL 100 MG TABLET (FP) PO SCH (21:33)
[2017-04-20] MEDS: busPIRone HCL 5 MG TABLET PO SCH ×3 (06:26→21:30)
[2017-04-20] MEDS: NICOTINE 21 MG/24 HOURS TOPICAL PATCH TD SCH (09:54)
[2017-04-20] MEDS: amLODIPine BESYLATE 5 MG TABLET (FP) PO SCH (09:54)
[2017-04-20] MEDS: PRENATAL VITAMINS W/ FOLIC ACID TABLET (FP) PO SCH (09:54)
[2017-04-20] MEDS: IBUPROFEN 400 MG TABLET (FP) PO PRN (09:56)
--- NOTE | 2017-04-20 15:24 | PN ---
S Progress Note (SOAP) Subjective: c/o BRBPR, indigestion Objective: 04/20/17 15:23 Vital Signs - 8 hr 04/20/17 10:00 Pulse Rate 66 Blood Pressure 136/90 labs reviewed, no anemia on admission, NAD, a and o x3 Assessment: 04/20/17 15:24 gastritis, hermorrhoids - will start protonix, anusol suppositories
[2017-04-20] MEDS ORDERED: HYDROCORTISONE ACETATE 25 MG/SUPP.RECT RC SCH (15:49)
[2017-04-20] MEDS: PANTOPRAZOLE 40 MG TABLET (FP) PO SCH (17:02)
[2017-04-20] MEDS: HYDROCORTISONE ACETATE 25 MG/SUPP.RECT RC SCH (21:30)
[2017-04-20] MEDS: QUEtiapine FUMARATE 300 MG TABLET PO SCH (21:30)
[2017-04-20] MEDS: THIAMINE HCL 100 MG TABLET (FP) PO SCH (21:30)
[2017-04-21] MEDS: busPIRone HCL 5 MG TABLET PO SCH ×3 (06:14→21:22)
[2017-04-21] MEDS: NICOTINE 21 MG/24 HOURS TOPICAL PATCH TD SCH (09:55)
[2017-04-21] MEDS: PRENATAL VITAMINS W/ FOLIC ACID TABLET (FP) PO SCH (09:55)
[2017-04-21] MEDS: PANTOPRAZOLE 40 MG TABLET (FP) PO SCH (09:55)
[2017-04-21] MEDS: amLODIPine BESYLATE 5 MG TABLET (FP) PO SCH (09:56)
[2017-04-21] MEDS: hydrOXYzine PAMOATE 50 MG CAPSULE (FP) PO PRN (09:58)
[2017-04-21] MEDS: QUEtiapine FUMARATE 300 MG TABLET PO SCH (21:22)
[2017-04-21] MEDS: THIAMINE HCL 100 MG TABLET (FP) PO SCH (21:22)
[2017-04-21] MEDS: HYDROCORTISONE ACETATE 25 MG/SUPP.RECT RC SCH (21:23)
[2017-04-22] MEDS: busPIRone HCL 5 MG TABLET PO SCH ×3 (06:20→21:28)
[2017-04-22] MEDS: amLODIPine BESYLATE 5 MG TABLET (FP) PO SCH (10:06)
[2017-04-22] MEDS: PRENATAL VITAMINS W/ FOLIC ACID TABLET (FP) PO SCH (10:06)
[2017-04-22] MEDS: hydrOXYzine PAMOATE 25 MG CAPSULE (FP) PO PRN (10:06)
[2017-04-22] MEDS: NICOTINE 21 MG/24 HOURS TOPICAL PATCH TD SCH (10:06)
[2017-04-22] MEDS: PANTOPRAZOLE 40 MG TABLET (FP) PO SCH (10:06)
--- NOTE | 2017-04-22 16:06 | PN ---
BHS Progress Note (SOAP) Subjective: urinary frequency, goes frequently small amount no burning or dysuria Objective: 04/22/17 16:04 Vital Signs - 24 hr 04/22/17 04/22/17 04/22/17 00:30 03:30 06:49 Temperature 98.2 F Pulse Rate 57 L Respiratory 16 16 18 Rate Blood Pressure 133/95 hyperensive Home Medication List Medication Instructions Recorded Confirmed Type Amlodipine Besylate [Norvasc -] 5 mg PO DAILY 04/14/17 04/18/17 History Quetiapine Fumarate [Seroquel -] 300 mg PO HS 04/14/17 04/18/17 History Active Medications Generic Name Dose Route Start Last Admin Trade Name Freq PRN Reason Stop Dose Admin Acetaminophen 650 mg 04/18/17 14:28 Tylenol - PO Q4H PRN FEVER OR PAIN Al Hydroxide/Mg Hydroxide 30 ml 04/18/17 14:28 Mylanta Oral Suspension - PO Q6H PRN DYSPEPSIA Amlodipine Besylate 5 mg 04/19/17 10:00 04/22/17 10:06 Norvasc - PO 5 mg DAILY YANNA Administration Buspirone HCl 5 mg 04/19/17 11:45 04/22/17 15:32 Buspar - PO 5 mg TID YANNA Administration Eucalyptus/Menthol/Phenol/Sorbitol 1 each 04/18/17 14:28 Cepastat Lozenge - MM Q4H PRN SORE THROAT Guaifenesin 10 ml 04/18/17 14:28 04/22/17 15:57 Robitussin Dm - PO 10 ml Q6H PRN Administration COUGH Hydrocortisone Acetate 25 mg 04/20/17 22:00 04/21/17 21:23 Anusol Hc Suppository - RC 25 mg HS YANNA Administration Hydroxyzine Pamoate 25 mg 04/18/17 14:28 04/22/17 10:06 Vistaril - PO 25 mg Q4H PRN Administration AGITATION Hydroxyzine Pamoate 50 mg 04/18/17 15:09 04/21/17 09:58 Vistaril - PO 50 mg Q4H PRN Administration ANXIETY Ibuprofen 400 mg 04/18/17 14:28 04/20/17 09:56 Motrin - PO 400 mg Q6H PRN Administration PAIN Loperamide HCl 4 mg 04/18/17 14:28 Imodium - PO Q6H PRN DIARRHEA Magnesium Citrate 300 ml 04/18/17 14:28 Citroma - PO Q48H PRN CONSTIPATION Magnesium Hydroxide 30 ml 04/18/17 14:28 Milk Of Magnesia - PO DAILY PRN CONSTIPATION Nicotine 21 mg 04/19/17 10:00 04/22/17 10:06 Nicoderm Patch - TD 21 mg DAILY YANNA Administration Nicotine Polacrilex 2 mg 04/18/17 14:28 Nicorette Gum - BUC Q2H PRN NICOTINE REPLACEMENT RX Pantoprazole Sodium 40 mg 04/20/17 15:30 04/22/17 10:06 Protonix - PO 40 mg DAILY YANNA Administration Multivit/Folic Acid/Iron 1 tab 04/19/17 10:00 04/22/17 10:06 Vitamins (Sjr) - PO 1 tab DAILY YANNA Administration Pseudoephedrine/Triprolidine 1 combo 04/18/17 14:28 Actifed - PO TID PRN NASAL CONGESTION Quetiapine Fumarate 300 mg 04/18/17 22:00 04/21/17 21:22 Seroquel - PO 300 mg HS YANNA Administration Thiamine HCl 100 mg 04/18/17 22:00 04/21/17 21:22 Vitamin B1 - PO 100 mg HS YANNA Administration labs reviewed Assessment: 04/22/17 16:06 abnormal u/a on admission - will repeat u/a no fluids after 6PM most likely prostate - to follow up with PCP when discharrged aas outpatient.
[2017-04-22] MEDS: amLODIPine BESYLATE 10 MG TABLET (FP) PO SCH (16:51)
[2017-04-22] MEDS: QUEtiapine FUMARATE 300 MG TABLET PO SCH (21:28)
[2017-04-22] MEDS: THIAMINE HCL 100 MG TABLET (FP) PO SCH (21:28)
[2017-04-22] MEDS: HYDROCORTISONE ACETATE 25 MG/SUPP.RECT RC SCH (21:29)
[2017-04-22] MEDS: hydrOXYzine PAMOATE 50 MG CAPSULE (FP) PO PRN (21:30)
[2017-04-23] MEDS: busPIRone HCL 5 MG TABLET PO SCH ×2 (06:06→14:28)
[2017-04-23] MEDS: NICOTINE 21 MG/24 HOURS TOPICAL PATCH TD SCH (09:54)
[2017-04-23] MEDS: PANTOPRAZOLE 40 MG TABLET (FP) PO SCH (09:54)
[2017-04-23] MEDS: PRENATAL VITAMINS W/ FOLIC ACID TABLET (FP) PO SCH (09:54)
[2017-04-23] MEDS: amLODIPine BESYLATE 10 MG TABLET (FP) PO SCH (09:54)
--- NOTE | 2017-04-23 14:20 | PN ---
Psychiatric Progress Note Vital Signs: Vital Signs Period Temp Pulse Resp BP Sys/Cabrales Pulse Ox Last 24 Hr 97.9 F 62-64 16-18 120-147/85-103 Date of Session: 04/23/17 Chief Complaint:: "progress update" HPI: Patient is addressing alcohol, cannabis, nicotine dependence comorbid mood disorder. ROS: Hypertension, alcohol related seizures, anemia, chronic back pain medically managed. Current Medications: Active Medications Generic Name Dose Route Start Last Admin Trade Name Freq PRN Reason Stop Dose Admin Acetaminophen 650 mg 04/18/17 14:28 Tylenol - PO Q4H PRN FEVER OR PAIN Al Hydroxide/Mg Hydroxide 30 ml 04/18/17 14:28 Mylanta Oral Suspension - PO Q6H PRN DYSPEPSIA Amlodipine Besylate 10 mg 04/22/17 17:00 04/23/17 09:54 Norvasc - PO 10 mg DAILY YANNA Administration Buspirone HCl 5 mg 04/19/17 11:45 04/23/17 06:06 Buspar - PO 5 mg TID YANNA Administration Eucalyptus/Menthol/Phenol/Sorbitol 1 each 04/18/17 14:28 Cepastat Lozenge - MM Q4H PRN SORE THROAT Guaifenesin 10 ml 04/18/17 14:28 04/22/17 15:57 Robitussin Dm - PO 10 ml Q6H PRN Administration COUGH Hydrocortisone Acetate 25 mg 04/20/17 22:00 04/22/17 21:29 Anusol Hc Suppository - RC 25 mg HS YANNA Administration Hydroxyzine Pamoate 25 mg 04/18/17 14:28 04/22/17 10:06 Vistaril - PO 25 mg Q4H PRN Administration AGITATION Hydroxyzine Pamoate 50 mg 04/18/17 15:09 04/22/17 21:30 Vistaril - PO 50 mg Q4H PRN Administration ANXIETY Ibuprofen 400 mg 04/18/17 14:28 04/20/17 09:56 Motrin - PO 400 mg Q6H PRN Administration PAIN Loperamide HCl 4 mg 04/18/17 14:28 Imodium - PO Q6H PRN DIARRHEA Magnesium Citrate 300 ml 04/18/17 14:28 Citroma - PO Q48H PRN CONSTIPATION Magnesium Hydroxide 30 ml 04/18/17 14:28 Milk Of Magnesia - PO DAILY PRN CONSTIPATION Nicotine 21 mg 04/19/17 10:00 04/23/17 09:54 Nicoderm Patch - TD 21 mg DAILY YANNA Administration Nicotine Polacrilex 2 mg 04/18/17 14:28 Nicorette Gum - BUC Q2H PRN NICOTINE REPLACEMENT RX Pantoprazole Sodium 40 mg 04/20/17 15:30 04/23/17 09:54 Protonix - PO 40 mg DAILY YANNA Administration Multivit/Folic Acid/Iron 1 tab 04/19/17 10:00 04/23/17 09:54 Vitamins (Sjr) - PO 1 tab DAILY YANNA Administration Pseudoephedrine/Triprolidine 1 combo 04/18/17 14:28 Actifed - PO TID PRN NASAL CONGESTION Quetiapine Fumarate 300 mg 04/18/17 22:00 04/22/17 21:28 Seroquel - PO 300 mg HS YANNA Administration Thiamine HCl 100 mg 04/18/17 22:00 04/22/17 21:28 Vitamin B1 - PO 100 mg HS YANNA Administration Current Side Effect: No Lab tests ordered: No Lab tests reviewed: Yes Provider note:: Patient reports he feels better with Bupsar, still very anxious and states that was prescibed ativan by his psychiatrist, patient was educated about addiction potential of bebzos, as well interaction with alcohol, patient verbalized understanding, will increase Buspar to 10 mg po tid, supportive therapy provided, continue to monitor progress. Total face to face time:: 25 Mental Status Exam - Mental Status Exam Alert and Oriented to: Time, Place, Person Cognitive Function: Grossly Intact Patient Appearance: Well Groomed Mood: Anxious Affect: Appropriate, Mood Congruent Patient Behavior: Appropriate, Cooperative Speech Pattern: Appropriate Voice Loudness: Normal Thought Process: Goal Oriented Thought Disorder: Not Present Hallucinations: Denies Suicidal Ideation: Denies Homicidal Ideation: Denies Insight/Judgement: Fair Sleep: Fair Appetite: Fair Muscle strength/Tone: Normal Gait/Station: Normal Psychiatric Treatment Plan - Problem List (1) Alcohol-induced sleep disorder Current Visit: No (2) Cannabis dependence Current Visit: No (3) Mood disorder Current Visit: No (4) Nicotine dependence Current Visit: No Qualifiers: Nicotine product type: cigarettes Substance use status: uncomplicated Qualified Code(s): F17.210 - Nicotine dependence, cigarettes, uncomplicated (5) Alcohol dependence Current Visit: Yes Qualifiers: Substance use status: uncomplicated Qualified Code(s): F10.20 - Alcohol dependence, uncomplicated
[2017-04-23] MEDS: busPIRone HCL 10 MG TABLET (FP) PO SCH ×2 (14:29→21:18)
[2017-04-23] MEDS: QUEtiapine FUMARATE 300 MG TABLET PO SCH (21:18)
[2017-04-23] MEDS: HYDROCORTISONE ACETATE 25 MG/SUPP.RECT RC SCH (21:18)
[2017-04-23] MEDS: THIAMINE HCL 100 MG TABLET (FP) PO SCH (21:18)
[2017-04-23] MEDS: hydrOXYzine PAMOATE 25 MG CAPSULE (FP) PO PRN (21:20)
[2017-04-24] MEDS: busPIRone HCL 10 MG TABLET (FP) PO SCH ×3 (06:31→21:25)
[2017-04-24 08:39] LABS: URINE APPEARANCE TURBID; URINE BILIRUBIN NEGATIVE (NEGATIVE); URINE BLOOD NEGATIVE (NEGATIVE); URINE COLOR AMBER; URINE GLUCOSE (UA) NEGATIVE (NEGATIVE); URINE KETONE NEGATIVE (NEGATIVE); URINE NITRITE NEGATIVE (NEGATIVE); URINE PROTEIN NEGATIVE (NEGATIVE); URINE UROBILINOGEN NEGATIVE mg/dL (0.2-1.0)
[2017-04-24] MEDS: PRENATAL VITAMINS W/ FOLIC ACID TABLET (FP) PO SCH (09:52)
[2017-04-24] MEDS: PANTOPRAZOLE 40 MG TABLET (FP) PO SCH (09:52)
[2017-04-24] MEDS: NICOTINE 21 MG/24 HOURS TOPICAL PATCH TD SCH (09:53)
[2017-04-24] MEDS: NICOTINE POLACRILEX 2 MG GUM BUC PRN (09:54)
[2017-04-24] MEDS: amLODIPine BESYLATE 10 MG TABLET (FP) PO SCH (09:54)
[2017-04-24] MEDS: hydrOXYzine PAMOATE 50 MG CAPSULE (FP) PO PRN ×2 (09:55→21:26)
[2017-04-24 15:34] LABS: URINE LEUK ESTERASE Negative (NEGATIVE)
[2017-04-24] MEDS: QUEtiapine FUMARATE 300 MG TABLET PO SCH (21:25)
[2017-04-24] MEDS: THIAMINE HCL 100 MG TABLET (FP) PO SCH (21:25)
[2017-04-24] MEDS: HYDROCORTISONE ACETATE 25 MG/SUPP.RECT RC SCH (21:25)
[2017-04-25] MEDS: busPIRone HCL 10 MG TABLET (FP) PO SCH ×3 (06:37→21:22)
[2017-04-25] MEDS: PRENATAL VITAMINS W/ FOLIC ACID TABLET (FP) PO SCH (10:17)
[2017-04-25] MEDS: amLODIPine BESYLATE 10 MG TABLET (FP) PO SCH (10:17)
[2017-04-25] MEDS: NICOTINE 21 MG/24 HOURS TOPICAL PATCH TD SCH (10:17)
[2017-04-25] MEDS: PANTOPRAZOLE 40 MG TABLET (FP) PO SCH (10:17)
[2017-04-25] MEDS: hydrOXYzine PAMOATE 50 MG CAPSULE (FP) PO PRN ×2 (10:18→21:24)
[2017-04-25] MEDS: IBUPROFEN 400 MG TABLET (FP) PO PRN (14:20)
[2017-04-25] MEDS: QUEtiapine FUMARATE 300 MG TABLET PO SCH (21:22)
[2017-04-25] MEDS: THIAMINE HCL 100 MG TABLET (FP) PO SCH (21:22)
[2017-04-25] MEDS: HYDROCORTISONE ACETATE 25 MG/SUPP.RECT RC SCH (21:22)
[2017-04-26] MEDS: busPIRone HCL 10 MG TABLET (FP) PO SCH ×3 (06:16→21:22)
[2017-04-26] MEDS: PANTOPRAZOLE 40 MG TABLET (FP) PO SCH (10:01)
[2017-04-26] MEDS: PRENATAL VITAMINS W/ FOLIC ACID TABLET (FP) PO SCH (10:01)
[2017-04-26] MEDS: amLODIPine BESYLATE 10 MG TABLET (FP) PO SCH (10:03)
[2017-04-26] MEDS: NICOTINE 21 MG/24 HOURS TOPICAL PATCH TD SCH (10:03)
[2017-04-26] MEDS: hydrOXYzine PAMOATE 50 MG CAPSULE (FP) PO PRN ×3 (10:03→21:23)
[2017-04-26] MEDS: NICOTINE POLACRILEX 2 MG GUM BUC PRN (14:08)
[2017-04-26] MEDS: THIAMINE HCL 100 MG TABLET (FP) PO SCH (21:22)
[2017-04-26] MEDS: HYDROCORTISONE ACETATE 25 MG/SUPP.RECT RC SCH (21:22)
[2017-04-26] MEDS: QUEtiapine FUMARATE 300 MG TABLET PO SCH (21:22)
[2017-04-27] MEDS: IBUPROFEN 400 MG TABLET (FP) PO PRN (06:04)
[2017-04-27] MEDS: busPIRone HCL 10 MG TABLET (FP) PO SCH ×3 (06:04→21:22)
[2017-04-27] MEDS: PANTOPRAZOLE 40 MG TABLET (FP) PO SCH (10:21)
[2017-04-27] MEDS: PRENATAL VITAMINS W/ FOLIC ACID TABLET (FP) PO SCH (10:21)
[2017-04-27] MEDS: amLODIPine BESYLATE 10 MG TABLET (FP) PO SCH (10:21)
[2017-04-27] MEDS: NICOTINE 21 MG/24 HOURS TOPICAL PATCH TD SCH (10:22)
[2017-04-27] MEDS: NICOTINE POLACRILEX 2 MG GUM BUC PRN (10:24)
[2017-04-27] MEDS: hydrOXYzine PAMOATE 25 MG CAPSULE (FP) PO PRN (10:25)
[2017-04-27] MEDS: QUEtiapine FUMARATE 300 MG TABLET PO SCH (21:22)
[2017-04-27] MEDS: THIAMINE HCL 100 MG TABLET (FP) PO SCH (21:22)
[2017-04-27] MEDS: HYDROCORTISONE ACETATE 25 MG/SUPP.RECT RC SCH (21:22)
[2017-04-27] MEDS: hydrOXYzine PAMOATE 50 MG CAPSULE (FP) PO PRN (21:23)
[2017-04-28] MEDS: busPIRone HCL 10 MG TABLET (FP) PO SCH ×3 (06:53→21:09)
[2017-04-28] MEDS: PRENATAL VITAMINS W/ FOLIC ACID TABLET (FP) PO SCH (10:09)
[2017-04-28] MEDS: hydrOXYzine PAMOATE 50 MG CAPSULE (FP) PO PRN ×2 (10:09→21:09)
[2017-04-28] MEDS: amLODIPine BESYLATE 10 MG TABLET (FP) PO SCH (10:09)
[2017-04-28] MEDS: PANTOPRAZOLE 40 MG TABLET (FP) PO SCH (10:09)
[2017-04-28] MEDS: NICOTINE 21 MG/24 HOURS TOPICAL PATCH TD SCH (10:09)
[2017-04-28] MEDS: NICOTINE POLACRILEX 2 MG GUM BUC PRN (10:11)
[2017-04-28] MEDS: THIAMINE HCL 100 MG TABLET (FP) PO SCH (21:08)
[2017-04-28] MEDS: QUEtiapine FUMARATE 300 MG TABLET PO SCH (21:08)
[2017-04-28] MEDS: HYDROCORTISONE ACETATE 25 MG/SUPP.RECT RC SCH (21:09)
[2017-04-29] MEDS: busPIRone HCL 10 MG TABLET (FP) PO SCH ×4 (06:32→21:17)
[2017-04-29] MEDS: amLODIPine BESYLATE 10 MG TABLET (FP) PO SCH (10:19)
[2017-04-29] MEDS: NICOTINE 21 MG/24 HOURS TOPICAL PATCH TD SCH (10:19)
[2017-04-29] MEDS: PANTOPRAZOLE 40 MG TABLET (FP) PO SCH (10:19)
[2017-04-29] MEDS: PRENATAL VITAMINS W/ FOLIC ACID TABLET (FP) PO SCH (10:19)
[2017-04-29] MEDS: hydrOXYzine PAMOATE 50 MG CAPSULE (FP) PO PRN ×3 (10:20→21:19)
[2017-04-29] MEDS: HYDROCORTISONE ACETATE 25 MG/SUPP.RECT RC SCH (21:17)
[2017-04-29] MEDS: QUEtiapine FUMARATE 300 MG TABLET PO SCH (21:17)
[2017-04-29] MEDS: THIAMINE HCL 100 MG TABLET (FP) PO SCH (21:18)
[2017-04-30] MEDS: busPIRone HCL 10 MG TABLET (FP) PO SCH ×3 (06:31→21:20)
[2017-04-30] MEDS: NICOTINE 21 MG/24 HOURS TOPICAL PATCH TD SCH (09:56)
[2017-04-30] MEDS: amLODIPine BESYLATE 10 MG TABLET (FP) PO SCH (09:56)
[2017-04-30] MEDS: PRENATAL VITAMINS W/ FOLIC ACID TABLET (FP) PO SCH (09:56)
[2017-04-30] MEDS: PANTOPRAZOLE 40 MG TABLET (FP) PO SCH (09:56)
[2017-04-30] MEDS: hydrOXYzine PAMOATE 50 MG CAPSULE (FP) PO PRN ×3 (09:58→21:21)
[2017-04-30] MEDS: NICOTINE POLACRILEX 2 MG GUM BUC PRN (14:08)
[2017-04-30] MEDS: THIAMINE HCL 100 MG TABLET (FP) PO SCH (21:20)
[2017-04-30] MEDS: HYDROCORTISONE ACETATE 25 MG/SUPP.RECT RC SCH (21:20)
[2017-04-30] MEDS: QUEtiapine FUMARATE 300 MG TABLET PO SCH (21:20)
[2017-05-01] MEDS: busPIRone HCL 10 MG TABLET (FP) PO SCH ×3 (06:51→21:32)
[2017-05-01] MEDS: PRENATAL VITAMINS W/ FOLIC ACID TABLET (FP) PO SCH (10:07)
[2017-05-01] MEDS: NICOTINE 21 MG/24 HOURS TOPICAL PATCH TD SCH (10:07)
[2017-05-01] MEDS: PANTOPRAZOLE 40 MG TABLET (FP) PO SCH (10:07)
[2017-05-01] MEDS: amLODIPine BESYLATE 10 MG TABLET (FP) PO SCH (10:07)
[2017-05-01] MEDS: hydrOXYzine PAMOATE 50 MG CAPSULE (FP) PO PRN ×2 (10:08→21:33)
[2017-05-01] MEDS: THIAMINE HCL 100 MG TABLET (FP) PO SCH (21:32)
[2017-05-01] MEDS: QUEtiapine FUMARATE 300 MG TABLET PO SCH (21:32)
[2017-05-01] MEDS: HYDROCORTISONE ACETATE 25 MG/SUPP.RECT RC SCH (21:34)
[2017-05-02] MEDS: busPIRone HCL 10 MG TABLET (FP) PO SCH ×3 (06:29→21:21)
[2017-05-02] MEDS: NICOTINE 21 MG/24 HOURS TOPICAL PATCH TD SCH (10:12)
[2017-05-02] MEDS: PRENATAL VITAMINS W/ FOLIC ACID TABLET (FP) PO SCH (10:12)
[2017-05-02] MEDS: PANTOPRAZOLE 40 MG TABLET (FP) PO SCH (10:12)
[2017-05-02] MEDS: amLODIPine BESYLATE 10 MG TABLET (FP) PO SCH (10:12)
[2017-05-02] MEDS: hydrOXYzine PAMOATE 50 MG CAPSULE (FP) PO PRN ×3 (10:13→21:22)
[2017-05-02] MEDS: NICOTINE POLACRILEX 2 MG GUM BUC PRN (10:14)
[2017-05-02] MEDS: QUEtiapine FUMARATE 300 MG TABLET PO SCH (21:21)
[2017-05-02] MEDS: HYDROCORTISONE ACETATE 25 MG/SUPP.RECT RC SCH (21:21)
[2017-05-02] MEDS: THIAMINE HCL 100 MG TABLET (FP) PO SCH (21:21)
[2017-05-03] MEDS: IBUPROFEN 400 MG TABLET (FP) PO PRN (01:30)
[2017-05-03] MEDS: busPIRone HCL 10 MG TABLET (FP) PO SCH ×3 (06:15→21:39)
[2017-05-03] MEDS: PRENATAL VITAMINS W/ FOLIC ACID TABLET (FP) PO SCH (10:13)
[2017-05-03] MEDS: amLODIPine BESYLATE 10 MG TABLET (FP) PO SCH (10:13)
[2017-05-03] MEDS: NICOTINE 21 MG/24 HOURS TOPICAL PATCH TD SCH (10:13)
[2017-05-03] MEDS: PANTOPRAZOLE 40 MG TABLET (FP) PO SCH (10:13)
[2017-05-03] MEDS: hydrOXYzine PAMOATE 50 MG CAPSULE (FP) PO PRN ×3 (10:15→21:41)
[2017-05-03] MEDS: THIAMINE HCL 100 MG TABLET (FP) PO SCH (21:39)
[2017-05-03] MEDS: HYDROCORTISONE ACETATE 25 MG/SUPP.RECT RC SCH (21:39)
[2017-05-03] MEDS: QUEtiapine FUMARATE 300 MG TABLET PO SCH (21:39)
[2017-05-04] MEDS: busPIRone HCL 10 MG TABLET (FP) PO SCH ×3 (06:18→21:44)
[2017-05-04] MEDS: hydrOXYzine PAMOATE 50 MG CAPSULE (FP) PO PRN ×4 (06:19→21:46)
[2017-05-04] MEDS: PANTOPRAZOLE 40 MG TABLET (FP) PO SCH (10:15)
[2017-05-04] MEDS: amLODIPine BESYLATE 10 MG TABLET (FP) PO SCH (10:15)
[2017-05-04] MEDS: NICOTINE 21 MG/24 HOURS TOPICAL PATCH TD SCH (10:15)
[2017-05-04] MEDS: PRENATAL VITAMINS W/ FOLIC ACID TABLET (FP) PO SCH (10:15)
[2017-05-04] MEDS: NICOTINE POLACRILEX 2 MG GUM BUC PRN (10:16)
[2017-05-04] MEDS: QUEtiapine FUMARATE 300 MG TABLET PO SCH (21:44)
[2017-05-04] MEDS: HYDROCORTISONE ACETATE 25 MG/SUPP.RECT RC SCH (21:44)
[2017-05-04] MEDS: THIAMINE HCL 100 MG TABLET (FP) PO SCH (21:44)
[2017-05-05] MEDS: busPIRone HCL 10 MG TABLET (FP) PO SCH ×3 (06:20→21:25)
[2017-05-05] MEDS: hydrOXYzine PAMOATE 50 MG CAPSULE (FP) PO PRN ×4 (06:21→21:29)
[2017-05-05] MEDS: PRENATAL VITAMINS W/ FOLIC ACID TABLET (FP) PO SCH (10:15)
[2017-05-05] MEDS: PANTOPRAZOLE 40 MG TABLET (FP) PO SCH (10:15)
[2017-05-05] MEDS: amLODIPine BESYLATE 10 MG TABLET (FP) PO SCH (10:15)
[2017-05-05] MEDS: NICOTINE 21 MG/24 HOURS TOPICAL PATCH TD SCH (10:15)
[2017-05-05] MEDS: HYDROCORTISONE ACETATE 25 MG/SUPP.RECT RC SCH (21:25)
[2017-05-05] MEDS: QUEtiapine FUMARATE 300 MG TABLET PO SCH (21:25)
[2017-05-05] MEDS: DOCUSATE SODIUM 100 MG CAPSULE (FP) PO SCH (21:25)
[2017-05-05] MEDS: THIAMINE HCL 100 MG TABLET (FP) PO SCH (21:26)
[2017-05-05] MEDS: TOLNAFTATE 1% CREAM 15 GM TUBE TP SCH (21:29)
[2017-05-06] MEDS: DOCUSATE SODIUM 100 MG CAPSULE (FP) PO SCH ×3 (06:27→21:40)
[2017-05-06] MEDS: busPIRone HCL 10 MG TABLET (FP) PO SCH ×3 (06:27→21:40)
[2017-05-06] MEDS ORDERED: POLYETHYLENE GLYCOL 3350 119 GM BTL PO SCH (10:00)
[2017-05-06] MEDS: NICOTINE 21 MG/24 HOURS TOPICAL PATCH TD SCH (10:05)
[2017-05-06] MEDS: PRENATAL VITAMINS W/ FOLIC ACID TABLET (FP) PO SCH (10:06)
[2017-05-06] MEDS: amLODIPine BESYLATE 10 MG TABLET (FP) PO SCH (10:06)
[2017-05-06] MEDS: TOLNAFTATE 1% CREAM 15 GM TUBE TP SCH ×2 (10:06→21:56)
[2017-05-06] MEDS: PANTOPRAZOLE 40 MG TABLET (FP) PO SCH (10:06)
[2017-05-06 10:07] LABS: BASO % 0.5 % (0-2.0); EOS % 4.7 % (0-4.5); MCH 32.7 pg (25.7-33.7); MCHC 33.8 g/dl (32.0-35.9); MEAN CELL VOLUME 96.6 fl (80-96); MEAN PLT VOLUME 7.4 fl (7.5-11.1); PLATELET COUNT 258 K/MM3 (134-434); RDW 13.4 % (11.9-15.9); WHITE BLOOD COUNT 5.2 K/mm3 (4.0-10.0)
[2017-05-06] MEDS: hydrOXYzine PAMOATE 50 MG CAPSULE (FP) PO PRN ×2 (10:07→21:41)
[2017-05-06 10:18] LABS: ANION GAP 10 (8-16); CALCIUM 8.7 mg/dL (8.5-10.1); CO2 26 mmol/L (21-32); CREATININE 1.1 mg/dL (0.7-1.3); GLUCOSE,RANDOM 128 mg/dL (74-106)
[2017-05-06] MEDS: hydrOXYzine PAMOATE 25 MG CAPSULE (FP) PO PRN (13:40)
[2017-05-06] MEDS: HYDROCORTISONE ACETATE 25 MG/SUPP.RECT RC SCH (21:40)
[2017-05-06] MEDS: THIAMINE HCL 100 MG TABLET (FP) PO SCH (21:40)
[2017-05-06] MEDS: QUEtiapine FUMARATE 300 MG TABLET PO SCH (21:40)
[2017-05-07] MEDS: hydrOXYzine PAMOATE 50 MG CAPSULE (FP) PO PRN ×3 (06:37→14:14)
[2017-05-07] MEDS: busPIRone HCL 10 MG TABLET (FP) PO SCH ×3 (06:37→21:49)
[2017-05-07] MEDS: DOCUSATE SODIUM 100 MG CAPSULE (FP) PO SCH ×3 (06:37→21:49)
[2017-05-07] MEDS: PANTOPRAZOLE 40 MG TABLET (FP) PO SCH (09:56)
[2017-05-07] MEDS: PRENATAL VITAMINS W/ FOLIC ACID TABLET (FP) PO SCH (09:56)
[2017-05-07] MEDS: amLODIPine BESYLATE 10 MG TABLET (FP) PO SCH (09:56)
[2017-05-07] MEDS: NICOTINE 21 MG/24 HOURS TOPICAL PATCH TD SCH (09:56)
[2017-05-07] MEDS: TOLNAFTATE 1% CREAM 15 GM TUBE TP SCH ×2 (09:57→21:49)
[2017-05-07] MEDS: NICOTINE POLACRILEX 2 MG GUM BUC PRN (09:59)
[2017-05-07] MEDS: THIAMINE HCL 100 MG TABLET (FP) PO SCH (21:49)
[2017-05-07] MEDS: HYDROCORTISONE ACETATE 25 MG/SUPP.RECT RC SCH (21:49)
[2017-05-07] MEDS: QUEtiapine FUMARATE 300 MG TABLET PO SCH (21:49)
[2017-05-08] MEDS: hydrOXYzine PAMOATE 50 MG CAPSULE (FP) PO PRN ×4 (04:57→21:42)
[2017-05-08] MEDS: IBUPROFEN 400 MG TABLET (FP) PO PRN (05:01)
[2017-05-08] MEDS: DOCUSATE SODIUM 100 MG CAPSULE (FP) PO SCH ×3 (06:37→21:42)
[2017-05-08] MEDS: busPIRone HCL 10 MG TABLET (FP) PO SCH ×3 (06:37→21:42)
[2017-05-08] MEDS: PRENATAL VITAMINS W/ FOLIC ACID TABLET (FP) PO SCH (09:44)
[2017-05-08] MEDS: PANTOPRAZOLE 40 MG TABLET (FP) PO SCH (09:44)
[2017-05-08] MEDS: amLODIPine BESYLATE 10 MG TABLET (FP) PO SCH (09:44)
[2017-05-08] MEDS: TOLNAFTATE 1% CREAM 15 GM TUBE TP SCH ×2 (09:45→21:43)
[2017-05-08] MEDS: NICOTINE 21 MG/24 HOURS TOPICAL PATCH TD SCH (09:45)
[2017-05-08] MEDS: HYDROCORTISONE ACETATE 25 MG/SUPP.RECT RC SCH (21:42)
[2017-05-08] MEDS: QUEtiapine FUMARATE 300 MG TABLET PO SCH (21:42)
[2017-05-08] MEDS: THIAMINE HCL 100 MG TABLET (FP) PO SCH (21:43)
[2017-05-09] MEDS: hydrOXYzine PAMOATE 50 MG CAPSULE (FP) PO PRN ×4 (06:34→21:26)
[2017-05-09] MEDS: busPIRone HCL 10 MG TABLET (FP) PO SCH ×3 (06:34→21:26)
[2017-05-09] MEDS: DOCUSATE SODIUM 100 MG CAPSULE (FP) PO SCH ×3 (06:34→21:26)
[2017-05-09] MEDS: NICOTINE 21 MG/24 HOURS TOPICAL PATCH TD SCH (09:54)
[2017-05-09] MEDS: PANTOPRAZOLE 40 MG TABLET (FP) PO SCH (09:54)
[2017-05-09] MEDS: TOLNAFTATE 1% CREAM 15 GM TUBE TP SCH ×2 (09:54→21:27)
[2017-05-09] MEDS: amLODIPine BESYLATE 10 MG TABLET (FP) PO SCH (09:54)
[2017-05-09] MEDS: PRENATAL VITAMINS W/ FOLIC ACID TABLET (FP) PO SCH (09:54)
[2017-05-09] MEDS: THIAMINE HCL 100 MG TABLET (FP) PO SCH (21:26)
[2017-05-09] MEDS: HYDROCORTISONE ACETATE 25 MG/SUPP.RECT RC SCH (21:26)
[2017-05-09] MEDS: QUEtiapine FUMARATE 300 MG TABLET PO SCH (21:26)
[2017-05-09] MEDS: HYDROCORTISONE 1% TOPICAL CREAM 30 GM TUBE TP SCH (21:27)
[2017-05-10] MEDS: hydrOXYzine PAMOATE 50 MG CAPSULE (FP) PO PRN ×3 (06:16→21:22)
[2017-05-10] MEDS: DOCUSATE SODIUM 100 MG CAPSULE (FP) PO SCH ×3 (06:16→21:22)
[2017-05-10] MEDS: busPIRone HCL 10 MG TABLET (FP) PO SCH ×3 (06:16→21:22)
[2017-05-10] MEDS: PANTOPRAZOLE 40 MG TABLET (FP) PO SCH (10:14)
[2017-05-10] MEDS: PRENATAL VITAMINS W/ FOLIC ACID TABLET (FP) PO SCH (10:14)
[2017-05-10] MEDS: TOLNAFTATE 1% CREAM 15 GM TUBE TP SCH ×2 (10:15→21:23)
[2017-05-10] MEDS: amLODIPine BESYLATE 10 MG TABLET (FP) PO SCH (10:15)
[2017-05-10] MEDS: NICOTINE 21 MG/24 HOURS TOPICAL PATCH TD SCH (10:15)
[2017-05-10] MEDS: HYDROCORTISONE 1% TOPICAL CREAM 30 GM TUBE TP SCH ×2 (10:16→21:23)
[2017-05-10] MEDS: THIAMINE HCL 100 MG TABLET (FP) PO SCH (21:22)
[2017-05-10] MEDS: QUEtiapine FUMARATE 300 MG TABLET PO SCH (21:22)
[2017-05-10] MEDS: HYDROCORTISONE ACETATE 25 MG/SUPP.RECT RC SCH (21:22)
[2017-05-11] MEDS: hydrOXYzine PAMOATE 50 MG CAPSULE (FP) PO PRN ×3 (06:17→21:14)
[2017-05-11] MEDS: DOCUSATE SODIUM 100 MG CAPSULE (FP) PO SCH ×3 (06:17→21:13)
[2017-05-11] MEDS: busPIRone HCL 10 MG TABLET (FP) PO SCH ×3 (06:17→21:13)
[2017-05-11] MEDS: PRENATAL VITAMINS W/ FOLIC ACID TABLET (FP) PO SCH (09:49)
[2017-05-11] MEDS: HYDROCORTISONE 1% TOPICAL CREAM 30 GM TUBE TP SCH ×2 (09:50→21:13)
[2017-05-11] MEDS: amLODIPine BESYLATE 10 MG TABLET (FP) PO SCH (09:50)
[2017-05-11] MEDS: PANTOPRAZOLE 40 MG TABLET (FP) PO SCH (09:50)
[2017-05-11] MEDS: NICOTINE 21 MG/24 HOURS TOPICAL PATCH TD SCH (09:50)
[2017-05-11] MEDS: TOLNAFTATE 1% CREAM 15 GM TUBE TP SCH ×2 (09:50→21:14)
[2017-05-11] MEDS: HYDROCORTISONE ACETATE 25 MG/SUPP.RECT RC SCH (21:13)
[2017-05-11] MEDS: THIAMINE HCL 100 MG TABLET (FP) PO SCH (21:13)
[2017-05-11] MEDS: QUEtiapine FUMARATE 300 MG TABLET PO SCH (21:13)
[2017-05-11] MEDS: NICOTINE POLACRILEX 2 MG GUM BUC PRN (21:16)
[2017-05-12] MEDS: busPIRone HCL 10 MG TABLET (FP) PO SCH ×3 (06:21→21:25)
[2017-05-12] MEDS: DOCUSATE SODIUM 100 MG CAPSULE (FP) PO SCH ×3 (06:21→21:25)
[2017-05-12] MEDS: hydrOXYzine PAMOATE 50 MG CAPSULE (FP) PO PRN ×4 (06:21→21:25)
[2017-05-12] MEDS: amLODIPine BESYLATE 10 MG TABLET (FP) PO SCH (10:20)
[2017-05-12] MEDS: PRENATAL VITAMINS W/ FOLIC ACID TABLET (FP) PO SCH (10:20)
[2017-05-12] MEDS: NICOTINE 21 MG/24 HOURS TOPICAL PATCH TD SCH (10:20)
[2017-05-12] MEDS: PANTOPRAZOLE 40 MG TABLET (FP) PO SCH (10:20)
[2017-05-12] MEDS: TOLNAFTATE 1% CREAM 15 GM TUBE TP SCH ×2 (10:21→21:25)
[2017-05-12] MEDS: HYDROCORTISONE 1% TOPICAL CREAM 30 GM TUBE TP SCH ×2 (10:21→21:26)
[2017-05-12] MEDS: NICOTINE POLACRILEX 2 MG GUM BUC PRN (14:21)
[2017-05-12] MEDS: HYDROCORTISONE ACETATE 25 MG/SUPP.RECT RC SCH (21:25)
[2017-05-12] MEDS: THIAMINE HCL 100 MG TABLET (FP) PO SCH (21:25)
[2017-05-12] MEDS: QUEtiapine FUMARATE 300 MG TABLET PO SCH (21:25)
[2017-05-13] MEDS: busPIRone HCL 10 MG TABLET (FP) PO SCH ×3 (06:01→21:48)
[2017-05-13] MEDS: hydrOXYzine PAMOATE 25 MG CAPSULE (FP) PO PRN (06:01)
[2017-05-13] MEDS: DOCUSATE SODIUM 100 MG CAPSULE (FP) PO SCH ×3 (06:01→21:48)
[2017-05-13] MEDS: PRENATAL VITAMINS W/ FOLIC ACID TABLET (FP) PO SCH (10:08)
[2017-05-13] MEDS: amLODIPine BESYLATE 10 MG TABLET (FP) PO SCH (10:08)
[2017-05-13] MEDS: PANTOPRAZOLE 40 MG TABLET (FP) PO SCH (10:08)
[2017-05-13] MEDS: hydrOXYzine PAMOATE 50 MG CAPSULE (FP) PO PRN ×2 (10:08→21:48)
[2017-05-13] MEDS: NICOTINE 21 MG/24 HOURS TOPICAL PATCH TD SCH (10:09)
[2017-05-13] MEDS: HYDROCORTISONE 1% TOPICAL CREAM 30 GM TUBE TP SCH ×2 (10:09→21:49)
[2017-05-13] MEDS: TOLNAFTATE 1% CREAM 15 GM TUBE TP SCH ×2 (10:09→21:49)
[2017-05-13] MEDS: THIAMINE HCL 100 MG TABLET (FP) PO SCH (21:48)
[2017-05-13] MEDS: QUEtiapine FUMARATE 300 MG TABLET PO SCH (21:48)
[2017-05-13] MEDS: HYDROCORTISONE ACETATE 25 MG/SUPP.RECT RC SCH (21:48)
[2017-05-14] MEDS: DOCUSATE SODIUM 100 MG CAPSULE (FP) PO SCH ×3 (06:36→21:24)
[2017-05-14] MEDS: hydrOXYzine PAMOATE 25 MG CAPSULE (FP) PO PRN ×2 (06:36→13:38)
[2017-05-14] MEDS: busPIRone HCL 10 MG TABLET (FP) PO SCH ×3 (06:36→21:24)
[2017-05-14] MEDS: hydrOXYzine PAMOATE 50 MG CAPSULE (FP) PO PRN ×2 (10:10→21:24)
[2017-05-14] MEDS: PRENATAL VITAMINS W/ FOLIC ACID TABLET (FP) PO SCH (10:10)
[2017-05-14] MEDS: HYDROCORTISONE 1% TOPICAL CREAM 30 GM TUBE TP SCH ×2 (10:11→21:26)
[2017-05-14] MEDS: NICOTINE 21 MG/24 HOURS TOPICAL PATCH TD SCH (10:11)
[2017-05-14] MEDS: amLODIPine BESYLATE 10 MG TABLET (FP) PO SCH (10:11)
[2017-05-14] MEDS: PANTOPRAZOLE 40 MG TABLET (FP) PO SCH (10:11)
[2017-05-14] MEDS: TOLNAFTATE 1% CREAM 15 GM TUBE TP SCH ×2 (10:11→21:25)
[2017-05-14] MEDS: QUEtiapine FUMARATE 300 MG TABLET PO SCH (21:24)
[2017-05-14] MEDS: HYDROCORTISONE ACETATE 25 MG/SUPP.RECT RC SCH (21:24)
[2017-05-14] MEDS: THIAMINE HCL 100 MG TABLET (FP) PO SCH (21:25)
[2017-05-14] MEDS: NICOTINE POLACRILEX 2 MG GUM BUC PRN (21:26)
[2017-05-15] MEDS: hydrOXYzine PAMOATE 50 MG CAPSULE (FP) PO PRN ×2 (06:23→21:19)
[2017-05-15] MEDS: DOCUSATE SODIUM 100 MG CAPSULE (FP) PO SCH ×3 (06:23→21:19)
[2017-05-15] MEDS: busPIRone HCL 10 MG TABLET (FP) PO SCH ×3 (06:23→21:19)
[2017-05-15] MEDS: NICOTINE 21 MG/24 HOURS TOPICAL PATCH TD SCH (10:11)
[2017-05-15] MEDS: PRENATAL VITAMINS W/ FOLIC ACID TABLET (FP) PO SCH (10:12)
[2017-05-15] MEDS: amLODIPine BESYLATE 10 MG TABLET (FP) PO SCH (10:12)
[2017-05-15] MEDS: PANTOPRAZOLE 40 MG TABLET (FP) PO SCH (10:12)
[2017-05-15] MEDS: HYDROCORTISONE 1% TOPICAL CREAM 30 GM TUBE TP SCH ×2 (10:14→21:19)
[2017-05-15] MEDS: TOLNAFTATE 1% CREAM 15 GM TUBE TP SCH ×2 (10:14→21:20)
[2017-05-15] MEDS: THIAMINE HCL 100 MG TABLET (FP) PO SCH (21:18)
[2017-05-15] MEDS: QUEtiapine FUMARATE 300 MG TABLET PO SCH (21:19)
[2017-05-15] MEDS: HYDROCORTISONE ACETATE 25 MG/SUPP.RECT RC SCH (21:19)
[2017-05-15] MEDS: NICOTINE POLACRILEX 2 MG GUM BUC PRN (21:21)
[2017-05-16] MEDS: busPIRone HCL 10 MG TABLET (FP) PO SCH ×3 (06:44→21:24)
[2017-05-16] MEDS: hydrOXYzine PAMOATE 50 MG CAPSULE (FP) PO PRN ×3 (06:44→21:24)
[2017-05-16] MEDS: DOCUSATE SODIUM 100 MG CAPSULE (FP) PO SCH ×3 (06:44→21:24)
[2017-05-16] MEDS: amLODIPine BESYLATE 10 MG TABLET (FP) PO SCH (09:49)
[2017-05-16] MEDS: PANTOPRAZOLE 40 MG TABLET (FP) PO SCH (09:49)
[2017-05-16] MEDS: PRENATAL VITAMINS W/ FOLIC ACID TABLET (FP) PO SCH (09:49)
[2017-05-16] MEDS: NICOTINE 21 MG/24 HOURS TOPICAL PATCH TD SCH (09:49)
[2017-05-16] MEDS: HYDROCORTISONE 1% TOPICAL CREAM 30 GM TUBE TP SCH ×2 (09:50→21:24)
[2017-05-16] MEDS: TOLNAFTATE 1% CREAM 15 GM TUBE TP SCH ×2 (09:50→21:25)
[2017-05-16] MEDS: HYDROCORTISONE ACETATE 25 MG/SUPP.RECT RC SCH (21:24)
[2017-05-16] MEDS: THIAMINE HCL 100 MG TABLET (FP) PO SCH (21:24)
[2017-05-16] MEDS: QUEtiapine FUMARATE 300 MG TABLET PO SCH (21:24)
[2017-05-17] MEDS: hydrOXYzine PAMOATE 50 MG CAPSULE (FP) PO PRN ×4 (06:44→21:27)
[2017-05-17] MEDS: DOCUSATE SODIUM 100 MG CAPSULE (FP) PO SCH ×3 (06:44→21:27)
[2017-05-17] MEDS: busPIRone HCL 10 MG TABLET (FP) PO SCH ×3 (06:44→21:27)
[2017-05-17] MEDS: PRENATAL VITAMINS W/ FOLIC ACID TABLET (FP) PO SCH (10:16)
[2017-05-17] MEDS: PANTOPRAZOLE 40 MG TABLET (FP) PO SCH (10:16)
[2017-05-17] MEDS: HYDROCORTISONE 1% TOPICAL CREAM 30 GM TUBE TP SCH ×2 (10:16→21:27)
[2017-05-17] MEDS: NICOTINE 21 MG/24 HOURS TOPICAL PATCH TD SCH (10:16)
[2017-05-17] MEDS: NICOTINE POLACRILEX 2 MG GUM BUC PRN ×2 (10:17→21:28)
[2017-05-17] MEDS: TOLNAFTATE 1% CREAM 15 GM TUBE TP SCH ×2 (10:17→21:28)
[2017-05-17] MEDS: amLODIPine BESYLATE 10 MG TABLET (FP) PO SCH (10:17)
[2017-05-17] MEDS: QUEtiapine FUMARATE 300 MG TABLET PO SCH (21:26)
[2017-05-17] MEDS: THIAMINE HCL 100 MG TABLET (FP) PO SCH (21:26)
[2017-05-17] MEDS: HYDROCORTISONE ACETATE 25 MG/SUPP.RECT RC SCH (21:27)
[2017-05-18] MEDS: hydrOXYzine PAMOATE 50 MG CAPSULE (FP) PO PRN (06:25)
[2017-05-18] MEDS: busPIRone HCL 10 MG TABLET (FP) PO SCH (06:25)
[2017-05-18] MEDS: DOCUSATE SODIUM 100 MG CAPSULE (FP) PO SCH (06:25)
[2017-05-18 06:41] VITALS: BP 121/85; PULSE 61; TEMP 98.5
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
[2017-05-18] MEDS: amLODIPine BESYLATE 10 MG TABLET (FP) PO SCH (10:09)
[2017-05-18] MEDS: NICOTINE 21 MG/24 HOURS TOPICAL PATCH TD SCH (10:09)
[2017-05-18] MEDS: PANTOPRAZOLE 40 MG TABLET (FP) PO SCH (10:09)
[2017-05-18] MEDS: HYDROCORTISONE 1% TOPICAL CREAM 30 GM TUBE TP SCH (10:09)
[2017-05-18] MEDS: TOLNAFTATE 1% CREAM 15 GM TUBE TP SCH (10:09)
[2017-05-18] MEDS: PRENATAL VITAMINS W/ FOLIC ACID TABLET (FP) PO SCH (10:09)
[2017-05-18] MEDS: NICOTINE POLACRILEX 2 MG GUM BUC PRN (10:11)
== END 2017-05-18 10:40 | disposition home or self-care (01) | DRG 772 ==
LOC: YASAS 12:52 → Y5N 12:54
PROVIDERS: ADMIT Psychiatry & Neurology Psychiatry; ATTEND Psychiatry & Neurology Psychiatry
PROC: HZ42ZZZ Group Counseling for Substance Abuse Treatment, Cognitive-Behavioral (ICD-10-PCS; principal; 2017-04-18)
DX: F10.20 Alcohol dependence, uncomplicated (principal); F14.20 Cocaine dependence, uncomplicated; F39 Unspecified mood [affective] disorder; F19.282 Other psychoactive substance dependence with psychoactive substance-induced sleep disorder
CPT/HCPCS: 36415; 80048; 81003; 85025; 90688; 90732; G0008; G0009

== ENCOUNTER 2018-11-28 08:31 | Inpatient (IN) | payer OTHER ==
[2018-11-28 10:35] VITALS: BMI 23.5
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
[2018-11-28] MEDS ORDERED: chlordiazePOXIDE HCL 10 MG CAPSULE PO PRN (12:41)
[2018-11-28] MEDS ORDERED: BISMUTH SUBSALICYLATE 524 MG/30 ML UD PO PRN (12:43)
[2018-11-28] MEDS ORDERED: hydrOXYzine HCL 25 MG TABLET (FP) PO PRN (12:43)
[2018-11-28] MEDS ORDERED: ACETAMINOPHEN 325 MG TABLET (FP) PO PRN (12:43)
[2018-11-28] MEDS ORDERED: MELATONIN 5 MG TABLETS PO PRN (12:43)
[2018-11-28] MEDS ORDERED: MAG HYDROX/AL HYDROX/SIMETH 30 ML UNIT-DOSE CUP PO PRN (12:43)
[2018-11-28] MEDS ORDERED: IBUPROFEN 400 MG TABLET (FP) PO PRN (12:43)
[2018-11-28] MEDS ORDERED: MAGNESIUM HYDROX 2400MG/30ML ORAL SUSPENSION 30 ML CUP PO PRN (12:43)
[2018-11-28] MEDS ORDERED: MENTHOL/PHENOL 1 EACH UD MM PRN (12:43)
--- NOTE | 2018-11-28 13:18 | PN ---
[facility] Progress Note Note: this 53 years old male with alcohol dependence,seeking detox,withdrawal symptom, patient has seizure in the past,history of hypertension,gerd,,depression I personally present and review the history and physical examination by Dr.Abbi Hameed,discussed the plan of treatment management and decision making,agreed and concurred with inpatient detox from alcohol,medically manage and librium regimen
[2018-11-28] MEDS: PANTOPRAZOLE 20 MG TABLET (FP) PO SCH (14:29)
[2018-11-28] MEDS: levETIRAcetam 500 MG TABLET (FP) PO SCH ×2 (14:29→22:32)
[2018-11-28] MEDS: chlordiazePOXIDE HCL 25 MG CAPSULE PO SCH ×2 (14:29→22:32)
[2018-11-28] MEDS: amLODIPine BESYLATE 5 MG TABLET (FP) PO SCH (14:29)
[2018-11-28] MEDS: NICOTINE 7 MG/24 HOURS TOPICAL PATCH TD SCH (14:30)
[2018-11-28 14:47] LABS: HEMATOCRIT 35.2 % (35.4-49); HEMOGLOBIN 11.9 GM/dL (11.7-16.9); MCH 33.2 pg (25.7-33.7); MCHC 33.7 g/dl (32.0-35.9); MEAN CELL VOLUME 98.5 fl (80-96); MEAN PLT VOLUME 7.3 fl (7.5-11.1); PLATELET COUNT 251 K/MM3 (134-434); RBC 3.57 M/mm3 (4.00-5.60); RDW 14.2 % (11.9-15.9); WHITE BLOOD COUNT 4.5 K/mm3 (4.0-10.0)
[2018-11-28 15:26] LABS: CALCIUM 8.3 mg/dL (8.5-10.1); CREATININE 0.8 mg/dL (0.55-1.3); POTASSIUM 3.8 mmol/L (3.5-5.1)
[2018-11-28 15:27] LABS: ALBUMIN 3.6 g/dl (3.4-5.0); BILIRUBIN,TOTAL 0.5 mg/dL (0.2-1); TOT PROT 7.1 g/dl (6.4-8.2)
[2018-11-28 15:31] LABS: BLOOD UREA NITROGEN 11.3 mg/dL (7-18)
[2018-11-28] MEDS: THIAMINE HCL 100 MG TABLET (FP) PO SCH (22:32)
[2018-11-29] MEDS: chlordiazePOXIDE HCL 25 MG CAPSULE PO SCH ×3 (06:07→22:02)
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
[2018-11-29] MEDS ORDERED: THIAMINE HCL 100 MG PO SCH (10:00)
[2018-11-29] MEDS ORDERED: FOLIC ACID 1 MG TABLET (FP) PO SCH (10:00)
[2018-11-29] MEDS: PRENATAL VITAMINS W/ FOLIC ACID TABLET (FP) PO SCH (10:19)
[2018-11-29] MEDS: NICOTINE 7 MG/24 HOURS TOPICAL PATCH TD SCH (10:20)
[2018-11-29] MEDS: PANTOPRAZOLE 20 MG TABLET (FP) PO SCH (10:20)
[2018-11-29] MEDS: amLODIPine BESYLATE 5 MG TABLET (FP) PO SCH (10:20)
[2018-11-29] MEDS: levETIRAcetam 500 MG TABLET (FP) PO SCH ×2 (10:20→22:02)
--- NOTE | 2018-11-29 12:30 | PN ---
[facility] CIWA - CIWA Score Nausea/Vomitin-No Nausea/No Vomiting Muscle Tremors: 2 Anxiety: 3 Agitation: 3 Paroxysmal Sweats: 1-Minimal Palms Moist Orientation: 1-Uncertain about Date Tacttile Disturbances: 1-Very Mild Itch/Numbness Auditory Disturbances: 0-None Visual Disturbances: 0-None Headache: 0-None Present CIWA-Ar Total Score: 11 S Progress Note (SOAP) Subjective: tired trouble concentrate hesitate to discuss aftercare tremor mild indigestion Objective: 11/29/18 12:32 Vital Signs Temperature 98.4 F 11/29/18 09:15 Pulse Rate 81 11/29/18 09:15 Respiratory Rate 16 11/29/18 09:15 Blood Pressure 140/87 11/29/18 09:15 O2 Sat by Pulse Oximetry (%) Laboratory Last Values WBC 4.5 K/mm3 (4.0-10.0) 11/28/18 13:10 RBC 3.57 M/mm3 (4.00-5.60) L 11/28/18 13:10 Hgb 11.9 GM/dL (11.7-16.9) 11/28/18 13:10 Hct 35.2 % (35.4-49) L 11/28/18 13:10 MCV 98.5 fl (80-96) H 11/28/18 13:10 MCH 33.2 pg (25.7-33.7) 11/28/18 13:10 MCHC 33.7 g/dl (32.0-35.9) 11/28/18 13:10 RDW 14.2 % (11.9-15.9) 11/28/18 13:10 Plt Count 251 K/MM3 (134-434) 11/28/18 13:10 MPV 7.3 fl (7.5-11.1) L 11/28/18 13:10 Sodium 141 mmol/L (136-145) 11/28/18 13:10 Potassium 3.8 mmol/L (3.5-5.1) 11/28/18 13:10 Chloride 107 mmol/L (98-107) 11/28/18 13:10 Carbon Dioxide 28 mmol/L (21-32) 11/28/18 13:10 Anion Gap 5 MMOL/L (8-16) L 11/28/18 13:10 BUN 11.3 mg/dL (7-18) 11/28/18 13:10 Creatinine 0.8 mg/dL (0.55-1.3) 11/28/18 13:10 Est GFR (CKD-EPI)AfAm 119.04 11/28/18 13:10 Est GFR (CKD-EPI)NonAf 102.71 11/28/18 13:10 Random Glucose 91 mg/dL (74-106) 11/28/18 13:10 Calcium 8.3 mg/dL (8.5-10.1) L 11/28/18 13:10 Total Bilirubin 0.5 mg/dL (0.2-1) 11/28/18 13:10 AST 23 U/L (15-37) 11/28/18 13:10 ALT 28 U/L (13-61) 11/28/18 13:10 Alkaline Phosphatase 91 U/L (45-117) 11/28/18 13:10 Total Protein 7.1 g/dl (6.4-8.2) 11/28/18 13:10 Albumin 3.6 g/dl (3.4-5.0) 11/28/18 13:10 RPR Titer Nonreactive (NONREACTIVE) 11/28/18 13:10 lab noted Assessment: 11/29/18 12:32 alcohol withdrawal sx Plan: continue alcohol detox
--- NOTE | 2018-11-29 14:35 | EKG ---
Test Reason : Blood Pressure : / mmHG Vent. Rate : 062 BPM Atrial Rate : 062 BPM P-R Int : 136 ms QRS Dur : 084 ms QT Int : 462 ms P-R-T Axes : 060 035 056 degrees QTc Int : 468 ms NORMAL SINUS RHYTHM NORMAL ECG WHEN COMPARED WITH ECG OF 14-APR-2017 22:20, NO SIGNIFICANT CHANGE WAS FOUND Confirmed by Mark Amaya ([id number]) on 11/29/2018 2:34:52 PM Referred By: Confirmed By:Mark Amaya
[2018-11-29] MEDS ORDERED: cloNIDine HCL 0.1 MG TABLET PO PRN (15:09)
[2018-11-29] MEDS: LISINOPRIL 5 MG TABLET (FP) PO SCH ×2 (17:20→22:02)
[2018-11-29] MEDS: THIAMINE HCL 100 MG TABLET (FP) PO SCH (22:02)
[2018-11-29] MEDS: QUEtiapine FUMARATE 50 MG TABLET PO SCH (22:02)
[2018-11-30] MEDS: chlordiazePOXIDE 5 MG CAPSULE PO SCH ×3 (05:42→22:22)
[2018-11-30] MEDS: LISINOPRIL 5 MG TABLET (FP) PO SCH ×2 (10:04→22:21)
[2018-11-30] MEDS: levETIRAcetam 500 MG TABLET (FP) PO SCH ×2 (10:05→22:21)
[2018-11-30] MEDS: PANTOPRAZOLE 20 MG TABLET (FP) PO SCH (10:05)
[2018-11-30] MEDS: PRENATAL VITAMINS W/ FOLIC ACID TABLET (FP) PO SCH (10:05)
[2018-11-30] MEDS: amLODIPine BESYLATE 5 MG TABLET (FP) PO SCH (10:05)
[2018-11-30] MEDS: NICOTINE 7 MG/24 HOURS TOPICAL PATCH TD SCH (10:06)
--- NOTE | 2018-11-30 11:45 | PN ---
S CIWA - CIWA Score Nausea/Vomitin-Mild Nausea/No Vomiting Muscle Tremors: 1-None Visible, but [place] Anxiety: 3 Agitation: 2 Paroxysmal Sweats: 1-Minimal Palms Moist Orientation: 0-Oriented Tacttile Disturbances: 1-Very Mild Itch/Numbness Auditory Disturbances: 0-None Visual Disturbances: 0-None Headache: 1-Very Mild CIWA-Ar Total Score: 10 S Progress Note (SOAP) Subjective: better bp control today mild headaches less tremor social with peers in day room Objective: 11/30/18 11:44 Vital Signs Temperature 98.4 F 11/30/18 09:19 Pulse Rate 65 11/30/18 09:19 Respiratory Rate 18 11/30/18 09:19 Blood Pressure 108/72 11/30/18 09:19 O2 Sat by Pulse Oximetry (%) Laboratory Last Values WBC 4.5 K/mm3 (4.0-10.0) 11/28/18 13:10 RBC 3.57 M/mm3 (4.00-5.60) L 11/28/18 13:10 Hgb 11.9 GM/dL (11.7-16.9) 11/28/18 13:10 Hct 35.2 % (35.4-49) L 11/28/18 13:10 MCV 98.5 fl (80-96) H 11/28/18 13:10 MCH 33.2 pg (25.7-33.7) 11/28/18 13:10 MCHC 33.7 g/dl (32.0-35.9) 11/28/18 13:10 RDW 14.2 % (11.9-15.9) 11/28/18 13:10 Plt Count 251 K/MM3 (134-434) 11/28/18 13:10 MPV 7.3 fl (7.5-11.1) L 11/28/18 13:10 Sodium 141 mmol/L (136-145) 11/28/18 13:10 Potassium 3.8 mmol/L (3.5-5.1) 11/28/18 13:10 Chloride 107 mmol/L (98-107) 11/28/18 13:10 Carbon Dioxide 28 mmol/L (21-32) 11/28/18 13:10 Anion Gap 5 MMOL/L (8-16) L 11/28/18 13:10 BUN 11.3 mg/dL (7-18) 11/28/18 13:10 Creatinine 0.8 mg/dL (0.55-1.3) 11/28/18 13:10 Est GFR (CKD-EPI)AfAm 119.04 11/28/18 13:10 Est GFR (CKD-EPI)NonAf 102.71 11/28/18 13:10 Random Glucose 91 mg/dL (74-106) 11/28/18 13:10 Calcium 8.3 mg/dL (8.5-10.1) L 11/28/18 13:10 Total Bilirubin 0.5 mg/dL (0.2-1) 11/28/18 13:10 AST 23 U/L (15-37) 11/28/18 13:10 ALT 28 U/L (13-61) 11/28/18 13:10 Alkaline Phosphatase 91 U/L (45-117) 11/28/18 13:10 Total Protein 7.1 g/dl (6.4-8.2) 11/28/18 13:10 Albumin 3.6 g/dl (3.4-5.0) 11/28/18 13:10 RPR Titer Nonreactive (NONREACTIVE) 11/28/18 13:10 lab noted Assessment: 11/30/18 11:44 alcohol withdrawal sx Plan: continue alcohol detox
[2018-11-30] MEDS: THIAMINE HCL 100 MG TABLET (FP) PO SCH (22:21)
[2018-11-30] MEDS: QUEtiapine FUMARATE 50 MG TABLET PO SCH (22:23)
[2018-12-01] MEDS ORDERED: chlordiazePOXIDE HCL 10 MG CAPSULE PO PRN
[2018-12-01] MEDS ORDERED: chlordiazePOXIDE HCL 10 MG CAPSULE PO SCH (05:00)
[2018-12-01] MEDS: LISINOPRIL 5 MG TABLET (FP) PO SCH (09:06)
[2018-12-01] MEDS: amLODIPine BESYLATE 5 MG TABLET (FP) PO SCH (09:06)
[2018-12-01] MEDS: PRENATAL VITAMINS W/ FOLIC ACID TABLET (FP) PO SCH (09:07)
[2018-12-01] MEDS: PANTOPRAZOLE 20 MG TABLET (FP) PO SCH (09:07)
[2018-12-01] MEDS: levETIRAcetam 500 MG TABLET (FP) PO SCH (09:07)
[2018-12-01 09:41] VITALS: BP 153/91; PULSE 50; TEMP 96.5
--- NOTE | 2018-12-01 14:14 | DS ---
[facility] Detox Discharge Summary Admission Date: 11/28/18 Discharge Date: 12/01/18 - History Present History: Alcohol Dependence Additional Comments: 53 years old male admitted on 11/28/18 for alcohol withdrawal sx medical history of asthma hypertension copd seizure disorder with unknown origin treated with keppra with good effect patient continues following up with neurologist and primary care provider for hypertension asthma and seizure management in the community Pertinent Past History: asthma copd hypertension seizure - Physical Exam Results Vital Signs: Vital Signs Temperature 96.5 F L 12/01/18 09:40 Pulse Rate 50 L 12/01/18 09:40 Respiratory Rate 18 12/01/18 09:40 Blood Pressure 153/91 12/01/18 09:40 O2 Sat by Pulse Oximetry (%) Pertinent Admission Physical Exam Findings: alcoho Laboratory Last Values WBC 4.5 K/mm3 (4.0-10.0) 11/28/18 13:10 RBC 3.57 M/mm3 (4.00-5.60) L 11/28/18 13:10 Hgb 11.9 GM/dL (11.7-16.9) 11/28/18 13:10 Hct 35.2 % (35.4-49) L 11/28/18 13:10 MCV 98.5 fl (80-96) H 11/28/18 13:10 MCH 33.2 pg (25.7-33.7) 11/28/18 13:10 MCHC 33.7 g/dl (32.0-35.9) 11/28/18 13:10 RDW 14.2 % (11.9-15.9) 11/28/18 13:10 Plt Count 251 K/MM3 (134-434) 11/28/18 13:10 MPV 7.3 fl (7.5-11.1) L 11/28/18 13:10 Sodium 141 mmol/L (136-145) 11/28/18 13:10 Potassium 3.8 mmol/L (3.5-5.1) 11/28/18 13:10 Chloride 107 mmol/L (98-107) 11/28/18 13:10 Carbon Dioxide 28 mmol/L (21-32) 11/28/18 13:10 Anion Gap 5 MMOL/L (8-16) L 11/28/18 13:10 BUN 11.3 mg/dL (7-18) 11/28/18 13:10 Creatinine 0.8 mg/dL (0.55-1.3) 11/28/18 13:10 Est GFR (CKD-EPI)AfAm 119.04 11/28/18 13:10 Est GFR (CKD-EPI)NonAf 102.71 11/28/18 13:10 Random Glucose 91 mg/dL (74-106) 11/28/18 13:10 Calcium 8.3 mg/dL (8.5-10.1) L 11/28/18 13:10 Total Bilirubin 0.5 mg/dL (0.2-1) 11/28/18 13:10 AST 23 U/L (15-37) 11/28/18 13:10 ALT 28 U/L (13-61) 11/28/18 13:10 Alkaline Phosphatase 91 U/L (45-117) 11/28/18 13:10 Total Protein 7.1 g/dl (6.4-8.2) 11/28/18 13:10 Albumin 3.6 g/dl (3.4-5.0) 11/28/18 13:10 RPR Titer Nonreactive (NONREACTIVE) 11/28/18 13:10 l withdrawal sx lab noted patient agrees to bring in lab report to aftercare follow up - Treatment Hospital Course: Detox Protocol Followed, Detoxed Safely, Responded well, Discharged Condition Good, Rehab Referral Accepted Patient has Accepted a Rehab Referral to: counseling services IOP - Medication Discharge Medications: Ambulatory Orders Quetiapine Fumarate [Seroquel -] 300 mg PO HS 30 Days #30 tab 05/18/17 Folic Acid - 1 mg PO DAILY 11/28/18 Thiamine HCl [Vitamin B-1] 100 mg PO DAILY 11/28/18 Amlodipine Besylate [Norvasc -] 5 mg PO DAILY #30 tablet 12/01/18 Lisinopril [Prinivil] 5 mg PO BID #14 tablet 12/01/18 levETIRAcetam [Keppra -] 500 mg PO BID #60 tablet 12/01/18 - Diagnosis (1) Seizure Status: Chronic (2) Essential hypertension Status: Chronic (3) Nicotine dependence Status: Acute Qualifiers: Nicotine product type: cigarettes Substance use status: in withdrawal Qualified Code(s): F17.213 - Nicotine dependence, cigarettes, with withdrawal (4) Substance induced mood disorder Status: Suspected (5) GERD (gastroesophageal reflux disease) Status: Chronic Qualifiers: Esophagitis presence: without esophagitis Qualified Code(s): K21.9 - Gastro -esophageal reflux disease without esophagitis (6) Asthma Status: Chronic Qualifiers: Asthma severity: mild Asthma persistence: intermittent Asthma complication type: with status asthmaticus Qualified Code(s): J45.22 - Mild intermittent asthma with status asthmaticus (7) COPD (chronic obstructive pulmonary disease) Status: Chronic Qualifiers: COPD type: emphysema Emphysema type: unspecified Qualified Code(s): J43.9 - Emphysema, unspecified - AMA Did Patient Leave Against Medical Advice: No
[2018-12-02] MEDS ORDERED: chlordiazePOXIDE HCL 10 MG CAPSULE PO ONE (05:00)
== END 2018-12-01 09:17 | disposition home or self-care (01) | DRG 775 ==
LOC: YASAS 08:31 → Y3N 13:48
PROVIDERS: ADMIT Surgery; ATTEND Surgery
PROC: HZ2ZZZZ Detoxification Services for Substance Abuse Treatment (ICD-10-PCS; principal; 2018-11-28)
DX: F10.230 Alcohol dependence with withdrawal, uncomplicated (principal); F17.213 Nicotine dependence, cigarettes, with withdrawal; F19.24 Other psychoactive substance dependence with psychoactive substance-induced mood disorder; F19.282 Other psychoactive substance dependence with psychoactive substance-induced sleep disorder; F32.9 Major depressive disorder, single episode, unspecified; I10 Essential (primary) hypertension; J45.22 Mild intermittent asthma with status asthmaticus; J44.9 Chronic obstructive pulmonary disease, unspecified; G40.509 Epileptic seizures related to external causes, not intractable, without status epilepticus; D64.9 Anemia, unspecified; K21.9 Gastro-esophageal reflux disease without esophagitis; Z87.828 Personal history of other (healed) physical injury and trauma
CPT/HCPCS: 36415; 71046-TC-FY; 80053; 85027; 86593; 93005; 93010